=== PATIENT | female | born 1955 | race Caucasian/White ===

== ENCOUNTER 2017-07-04 14:59 | Emergency (ER) | payer MEDICARE, OTHER ==
[2017-07-04 15:25] VITALS: O2SAT 97
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
[2017-07-04] MEDS ORDERED: MORPHINE SULFATE 4 MG INJ IV ONE (15:42)
[2017-07-04] MEDS ORDERED: KEFZOL 1 GM/50 ML PREMIX** 1 GM/50 ML IVPB IV STA (15:42)
[2017-07-04] MEDS ORDERED: Sodium Chloride 0.9% 1000 ML 1,000 ML IV STA (15:43)
[2017-07-04] MEDS ORDERED: BACIGUENT PACKET TP ONE (15:43)
[2017-07-04] MEDS ORDERED: Sodium Chloride 0.9% 1000 ML 1,000 ML ONE (15:48)
[2017-07-04] MEDS ORDERED: KEFZOL 1 GM/50 ML PREMIX** 1 GM/50 ML IVPB IV ONE (15:48)
[2017-07-04] MEDS ORDERED: MORPHINE SULFATE 4 MG INJ ONE (15:48)
[2017-07-04] MEDS ORDERED: BACIGUENT PACKET ONE (15:48)
[2017-07-04] MEDS ORDERED: Adacel Vial IM ONE ×2 (15:55→16:16)
[2017-07-04] MEDS ORDERED: Zofran 4 MG/2 ML VIAL IV ONE (15:59)
[2017-07-04] MEDS ORDERED: Hydromorphone 1 mg/ml Ampule IV ONE ×2 (15:59→16:46)
[2017-07-04] MEDS ORDERED: Hydromorphone 1 mg/ml Ampule ONE ×2 (16:01→16:34)
[2017-07-04] MEDS ORDERED: Zofran 4 MG/2 ML VIAL ONE (16:01)
[2017-07-04 17:05] VITALS: BP 123/75; PULSE 102
== END 2017-07-04 17:04 | disposition home or self-care (01) ==
LOC: ED 14:59
DX: T22.212A Burn of second degree of left forearm, initial encounter (principal); T23.202A Burn of second degree of left hand, unspecified site, initial encounter; X12.XXXA Contact with other hot fluids, initial encounter
CPT/HCPCS: 36000; 90471; 90715; 96360; 96365; 96374; 96375; 96376; 99284; J0690; J1170; J2270; J2405; A9270-GY

== ENCOUNTER 2018-05-06 18:49 | Emergency (ER) | payer MEDICARE ==
[2018-05-06] MEDS ORDERED: Augmentin 875-125 Tablet PO ONE (19:23)
[2018-05-06] MEDS ORDERED: NORCO 5/325 MG PO ONE ×2 (19:23→19:24)
--- NOTE | 2018-05-06 19:29 | ERPHSYRPT ---
- History of Present Illness Time Seen by Provider: 05/06/18 19:14 Source: patient Exam Limitations: no limitations Patient Subjective Stated Complaint: pt reports dental abscess and facial swelling since yesterday. states she called her dentist and PCP and was not able to get in to either. Triage Nursing Assessment: pt is aox3, pupils perrl, pt afebrile, resps easy and non labored, skin pink warm dry. swelling noted to the the right face, face is warm to touch. dental carries noted to the right upper molars. Physician History: 62 y/o female comes to the ER with complaints of right upper tooth pain with swelling that started 2 days ago. Pt describes the pain as aching, 9/10, constant, and pt has not taken any pain meds. Pt denies any fever. Timing/Duration: gradual onset Severity: severe ENT Location: mouth, dental Prearrival Treatment: no prearrival treatment Modifying Factors: Improves With: nothing Associated Symptoms: jaw pain Allergies/Adverse Reactions: No Known Drug Allergies Allergy (Unverified 05/06/18 19:01) Home Medications: Duloxetine HCl 30 mg [Cymbalta 30 MG Capsule] 60 mg PO DAILY 08/30/16 [ History] Lisinopril 20 mg [Zestril 20 MG] 20 mg PO DAILY 08/30/16 [History] Hx Tetanus, Diphtheria Vaccination/Date Given: Yes Hx Influenza Vaccination/Date Given: Yes Hx Pneumococcal Vaccination/Date Given: No Immunizations Up to Date: Yes - Review of Systems Constitutional: No Fever, No Chills Eyes: No Symptoms Ears, Nose, & Throat: Mouth Pain Respiratory: No Cough, No Dyspnea Cardiac: No Chest Pain, No Edema, No Syncope Abdominal/Gastrointestinal: No Abdominal Pain, No Nausea, No Vomiting, No Diarrhea Genitourinary Symptoms: No Dysuria Musculoskeletal: No Back Pain, No Neck Pain Skin: No Rash Neurological: No Dizziness, No Focal Weakness, No Sensory Changes Psychological: No Symptoms Endocrine: No Symptoms All Other Systems: Reviewed and Negative - Past Medical History Pertinent Past Medical History: Yes Neurological History: No Pertinent History ENT History: No Pertinent History Cardiac History: Hypertension, Other Respiratory History: No Pertinent History Endocrine Medical History: No Pertinent History Musculoskeletal History: No Pertinent History GI Medical History: No Pertinent History History: No Pertinent History Psycho-Social History: Depression Female Reproductive Disorders: No Pertinent History - Past Surgical History Past Surgical History: Yes Neuro Surgical History: No Pertinent History Cardiac: No Pertinent History Respiratory: No Pertinent History Gastrointestinal: No Pertinent History Genitourinary: No Pertinent History Musculoskeletal: No Pertinent History Female Surgical History: No Pertinent History Other Surgical History: right kidney removed 2016 - Social History Smoking Status: Current every day smoker Exposure to second hand smoke: Yes Drug Use: none Patient Lives Alone: No - Female History Hx Now: No - Nursing Vital Signs Nursing Vital Signs: Initial Vital Signs Temperature 97.9 F 05/06/18 18:52 Pulse Rate 95 H 05/06/18 18:52 Respiratory Rate 20 05/06/18 18:52 Blood Pressure 102/76 05/06/18 18:52 O2 Sat by Pulse Oximetry 97 05/06/18 18:52 Pain Scale Pain Intensity 9 - Physical Exam General Appearance: mild distress, alert Eye Exam: bilateral eye: PERRL, EOMI Nasal Exam: normal inspection Throat Exam: dental tenderness, moist mucus membranes, No tonsillar exudate Neck Exam: normal inspection, non-tender, supple Cardiovascular/Respiratory Exam: normal breath sounds, regular rate/rhythm Abdominal Exam: non-tender, soft Neurologic Exam: alert, oriented x 3, sensation nml, No motor deficits Skin Exam: normal color, warm, dry SpO2: 97 Oxygen Delivery: Room Air - Course Nursing assessment & vital signs reviewed: Yes Ordered Tests: Medication Summary Generic Name Dose Route Start Last Admin Trade Name Freq PRN Reason Stop Dose Admin Hydrocodone Bitart/Acetaminophen 2 tab 05/06/18 19:24 [place] 5/325 Mg PO 05/06/18 19:25 STAT ONE Discontinued Medications Generic Name Dose Route Start Last Admin Trade Name Freq PRN Reason Stop Dose Admin Hydrocodone Bitart/Acetaminophen 1 tab 05/06/18 19:23 [place] 5/325 Mg PO 05/06/18 19:24 STAT ONE Amoxicillin/Clavulanate Potassium 875 mg 05/06/18 19:23 Augmentin 875-125 Tablet PO 05/06/18 19:24 STAT ONE - Progress Progress: unchanged Progress Note: 05/06/18 19:27 Pt will be started on augmentin and norco for dental abscess. Pt has F/U with dentistry on Wednesday. - Departure Time of Disposition: 19:27 Departure Disposition: Home Clinical Impression: Dental abscess Condition: Stable Critical Care Time: No Referrals: CELINA LUNA [Primary Care Provider] - Instructions: Tooth Abscess (DC) Additional Instructions: Follow up with your dentist on Wednesday. Prescriptions: Amoxicillin/Potassium Clav [Augmentin 875-125 Tablet] 875 mg PO BID #19 tablet Hydrocodone Bit/Acetaminophen [[place] 5-325 Tablet] 1 each PO QID PRN #12 tablet MDD 4 PRN Reason: Pain
[2018-05-06] MEDS ORDERED: Augmentin 875-125 Tablet ONE (19:36)
[2018-05-06] MEDS ORDERED: NORCO 5/325 MG ONE ×2 (19:36→19:37)
[2018-05-06 19:44] VITALS: BP 117/57; PULSE 92; O2SAT 95
== END 2018-05-06 19:45 | disposition home or self-care (01) ==
LOC: ED 18:49
DX: K04.7 Periapical abscess without sinus (principal); Z79.899 Other long term (current) drug therapy
CPT/HCPCS: 99283; A9270-GY

== ENCOUNTER 2018-08-05 18:11 | Emergency (ER) | payer MEDICARE ==
[2018-08-05] MEDS ORDERED: ZOFRAN ODT 4 MG ONE ×2 (18:30→19:19)
[2018-08-05 18:34] VITALS: BP 136/93; O2SAT 98
[2018-08-05] MEDS ORDERED: ZOFRAN ODT 4 MG PO ONE ×2 (18:37→19:02)
[2018-08-05] MEDS ORDERED: NORCO 5/325 MG PO ONE (19:03)
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
[2018-08-05] MEDS ORDERED: NORCO 5/325 MG ONE (19:19)
[2018-08-05 19:37] VITALS: PULSE 82
--- NOTE | 2018-08-05 22:17 | XRAY ---
Indication: Pain and swelling following injury. Comparison: None 3 views of the left hand obtained. No bony, articular, or soft tissue abnormalities.
== END 2018-08-05 19:40 | disposition home or self-care (01) ==
LOC: ED 18:11
DX: S60.222A Contusion of left hand, initial encounter (principal); W20.8XXA Other cause of strike by thrown, projected or falling object, initial encounter; Y93.89 Activity, other specified; Y92.009 Unspecified place in unspecified non-institutional (private) residence as the place of occurrence of the external cause
CPT/HCPCS: 29126; 73130; 99284; Q0162; A9270-GY

== ENCOUNTER 2020-12-13 19:16 | Emergency (ER) | payer MEDICARE ==
[2020-12-13] MEDS ORDERED: Sodium Chloride 0.9% 1000 ML 1,000 ML IV STA (19:36)
[2020-12-13] MEDS ORDERED: Sodium Chloride 0.9% 1000 ML 1,000 ML ONE (19:41)
[2020-12-13 19:49] LABS: Absolute Neutrophil Ct (ANC) 4.22 (1.4-6.9); BASOPHIL % 0.5 % (0.0-0.4); Basophil (Absolute #) 0.04 (0-0.4); Eosinophil % 7.6 % (0.00-5.0); Eosinophil (Absolute #) 0.64 (0-0.5); Hematocrit 46.2 % (35-47); Hemoglobin 14.5 gm/dl (12.0-16.0); Lymphocyte (Absolute #) 2.86 (1.0-4.6); Lymphocytes % 33.9 % (24.0-44.0); Mean Cell Volume 89.2 fl (78-100); Mean Corpuscular Hgb Concent. 31.4 g/dl (32-36); Mean Platelet Volume 10.2 fl (7.5-11.0); Monocyte (Absolute #) 0.68 (0.0-1.3); Monocytes % 8.1 % (0.0-12.0); Neutrophil % 49.9 % (36.0-66.0); Platelet Count 363 K/mm3 (150-450); Red Blood Count 5.18 M/mm3 (4.1-5.4); Red Cell Distribution Width 14.8 % (11.5-14.0); White Blood Count 8.4 K/mm3 (4.0-10.5)
[2020-12-13 19:57] LABS: PROTIME 11.3 SECONDS (9.95-12.35)
[2020-12-13 20:10] LABS: ALBUMIN 4.3 g/dL (3.5-5.0); ANION GAP 13.5 MEQ/L (5-15); BILIRUBIN,TOTAL 0.2 mg/dL (0.2-1.3); Calcium 9.3 mg/dL (8.4-10.2); Creatinine 1 1.41 mg/dL (0.52-1.04); MAGNESIUM 2.1 mg/dL (1.6-2.3); NT PRO BNP 97.2 pg/mL (0-900); Potassium 3.7 mmol/L (3.5-5.1); Total Protein 7.5 g/dL (6.3-8.2)
[2020-12-13 20:20] LABS: Erythrocyte Sedimentation Rate 5 mm/hr (0-20)
--- NOTE | 2020-12-13 22:24 | ERPHSYRPT ---
- History of Present Illness Time Seen by Provider: 12/13/20 19:35 Source: patient Exam Limitations: no limitations Patient Subjective Stated Complaint: pt states she has had some shortness of breath, intermittent chest pain, and new cough for approx 3 days. states shortne ss of breath has been increased today. describes chest pain as pressure, radiates to rt neck and jaw, and rates at 7/10. increased pain with deep brreath Triage Nursing Assessment: pt alert and oriented, answers questions approp. pt ambulatory with steady gait noted. respirations nonlabored. heart rate 100 on monitor with sinus tach noted. skin warm and dry. Physician History: Patient is a 85-year-old female who presents with a complaint of 3-day history of increasing shortness of breath. She started with a severe episode of chest pain which lasted for a while since then she has had shortness of breath and pleuritic chest pain she saw who was concerned about a pulmonary embolus and did send her to the ER for a CTA. After arrival in the discovery she had 1 kidney a lower D-dimer than in his office and lower GFR than in his o ffice he did consult with him and he did request that we proceed with a CTA because of his great concern that this could represent pulmonary embolus. Timing/Duration: day(s) (3) Activities at Onset: none Quality: sharpness Location: substernal Chest Pain Radiation: no radiation Severity of Pain-Max: severe Severity of Pain-Current: mild Modifying Factors: Improves With: breathing Nitro Today/Relief: no nitro taken today Aspirin Treatment Today: no aspirin today Associated Symptoms: denies symptoms Prior Chest Pain/Cardiac Workup: no prior chest pain Allergies/Adverse Reactions: No Known Drug Allergies Allergy (Verified 12/13/20 19:59) Home Medications: Duloxetine HCl 30 mg [Cymbalta 30 MG Capsule] 60 mg PO DAILY 08/30/16 [His tory] Aspirin EC 81 mg [Ecotrin 81 mg] 81 mg PO DAILY 12/13/20 [History] Buspirone HCl [Buspar] 15 mg PO BID 12/13/20 [History] Duloxetine HCl [Cymbalta] 60 mg PO DAILY 12/13/20 [History] Metoprolol Succinate 25 mg Xl* [Toprol-Xl 25MG Tablets] 25 mg PO BID 12/13/20 [History] Pravastatin Sodium 20 mg PO DAILY 12/13/20 [History] Pregabalin [Lyrica 100Mg] 100 mg PO TID 12/13/20 [History] Hx Tetanus, Diphtheria Vaccination/Date Given: Yes Hx Influenza Vaccination/Date Given: Yes Hx Pneumococcal Vaccination/Date Given: No Immunizations Up to Date: Yes Travel Risk - International Travel Have you traveled outside of the country in past 3 weeks: No - Coronavirus Screening Are you exhibiting any of the following symptoms?: Yes Symptoms: Cough: New Onset, Shortness of Breath Close contact with a COVID-19 positive Pt in past 14-21 Days: No - Vaccine Status Have you recieved a Covid-19 vaccination: No - Review of Systems Constitutional: No Fever, No Chills Eyes: No Symptoms Ears, Nose, & Throat: No Symptoms Respiratory: Dyspnea, Dyspnea on Exertion ([place]) Cardiac: Chest Pain Abdominal/Gastrointestinal: No Abdominal Pain, No Nausea, No Vomiting, No Diarrhea Genitourinary Symptoms: No Dysuria Musculoskeletal: No Back Pain, No Neck Pain Skin: No Rash Neurological: No Dizziness, No Focal Weakness, No Sensory Changes Psychological: No Symptoms Endocrine: No Symptoms All Other Systems: Reviewed and Negative - Past Medical History Pertinent Past Medical History: Yes Neurological History: No Pertinent History ENT History: No Pertinent History Cardiac History: Hypertension, Other Respiratory History: No Pertinent History Endocrine Medical History: No Pertinent History Musculoskeletal History: No Pertinent History GI Medical History: No Pertinent History History: No Pertinent History Psycho-Social History: Anxiety, Depression Female Reproductive Disorders: No Pertinent History Other Medical History: tachycardia - Past Surgical History Past Surgical History: Yes Neuro Surgical History: No Pertinent History Cardiac: No Pertinent History Respiratory: No Pertinent History Gastrointestinal: No Pertinent History Genitourinary: Kidney Surgery Musculoskeletal: No Pertinent History Female Surgical History: No Pertinent History Other Surgical History: right kidney removed 2015 - Social History Smoking Status: Former smoker Exposure to second hand smoke: Yes Drug Use: none Patient Lives Alone: No - Nursing Vital Signs Nursing Vital Signs: Initial Vital Signs Temperature 97.1 F 12/13/20 19:17 Pulse Rate 100 H 12/13/20 19:17 Respiratory Rate 20 12/13/20 19:17 Blood Pressure 133/84 12/13/20 19:17 O2 Sat by Pulse Oximetry 97 12/13/20 19:17 Pain Scale Pain Intensity 5 - Physical Exam General Appearance: no apparent distress, alert Eye Exam: PERRL/EOMI, eyes nml inspection Ears, Nose, Throat Exam: normal ENT inspection, moist mucous membranes Neck Exam: normal inspection, non-tender, supple Respiratory Exam: normal breath sounds, lungs clear, No respiratory distress Cardiovascular Exam: regular rate/rhythm, normal heart sounds, No edema Gastrointestinal/Abdomen Exam: soft, No tenderness, No mass Back Exam: normal inspection, No CVA tenderness, No vertebral tenderness Extremity Exam: normal inspection, normal range of motion Neurologic Exam: alert, oriented x 3, cooperative, normal mood/affect, nml cerebellar function, sensation nml, No motor deficits Skin Exam: normal color, warm, dry Lymphatic Exam: No adenopathy SpO2: 98 - Course Nursing assessment & vital signs reviewed: Yes EKG Interpreted by Me: RATE (105), Sinus Rhythm, Sinus Tach, NORMAL AXIS, NORMAL INTERVALS, NORMAL QRS, NORMAL ST-T - CT Exams Chest CT Interpretation: Negative (Negative for pulmonary emboli) - Radiology Ultrasound Exam Venous Lower Extremity Ultrasound: negative Ordered Tests: Active Orders 24 hr Category Date Time Status IV Insertion STAT Care 12/13/20 19:38 Active CHEST WITH CONTRAST [CT] Stat Exams 12/13/20 19:34 Taken VENOUS BILATERAL EXTREMITY [US] Stat Exams 12/13/20 22:11 Taken AMYLASE Stat Lab 12/13/20 19:45 Completed CBC W DIFF Stat Lab 12/13/20 19:45 Completed CMP Stat Lab 12/13/20 19:45 Completed D-DIMER QUANTITATIVE Stat Lab 12/13/20 19:45 Completed Erythrocyte Sedimentation Rate Stat Lab 12/13/20 19:45 Completed LIPASE Stat Lab 12/13/20 19:45 Completed Lactic Acid Stat Lab 12/13/20 19:55 Completed MAGNESIUM Stat Lab 12/13/20 19:45 Completed NT PRO BNP Stat Lab 12/13/20 19:45 Completed PROTIME WITH INR Stat Lab 12/13/20 19:45 Completed TROPONIN Q3H Lab 12/13/20 19:45 Completed TROPONIN Q3H Lab 12/13/20 22:45 Ordered TROPONIN Q3H Lab 12/14/20 01:45 Ordered TROPONIN Q3H Lab 12/14/20 04:45 Ordered TROPONIN Q3H Lab 12/14/20 07:45 Ordered UA W/RFX UR CULTURE Stat Lab 12/13/20 19:34 Ordered Medication Summary Discontinued Medications Generic Name Dose Route Start Last Admin Trade Name Konrad PRN Reason Stop Dose Admin Sodium Chloride 1,000 mls @ 999 mls/hr 12/13/20 19:36 12/13/20 20:44 Sodium Chloride 0.9% 1000 Ml IV 12/13/20 20:36 Infused .Q1H1M STA Infusion Sodium Chloride Confirm 12/13/20 19:41 Sodium Chloride 0.9% 1000 Ml Administered 12/13/20 19:42 Dose 1,000 mls @ ud .ROUTE .STK-MED ONE Lab/Rad Data: Laboratory Result Diagrams 12/13/20 19:45 12/13/20 19:45 Laboratory Results 12/13/20 12/13/20 12/13/20 Range/Units 19:55 19:45 19:45 WBC (4.0-10.5) K/mm3 RBC (4.1-5.4) M/mm3 Hgb (12.0-16.0) gm/dl Hct (35-47) % MCV (78-100) fl MCH (26-32) pg MCHC (32-36) g/dl RDW (11.5-14.0) % Plt Count (150-450) K/mm3 MPV (7.5-11.0) fl Gran % (36.0-66.0) % Eos # (Auto) (0-0.5) Absolute Lymphs (auto) (1.0-4.6) Absolute Monos (auto) (0.0-1.3) Lymphocytes % (24.0-44.0) % Monocytes % (0.0-12.0) % Eosinophils % (0.00-5.0) % Basophils % (0.0-0.4) % Absolute Granulocytes (1.4-6.9) Basophils # (0-0.4) ESR (0-20) mm/hr PT 11.3 (9.95-12.35) SECONDS INR 1.00 (0.8-3.0) D-Dimer 652 H* (215-500) ng/mL Sodium (137-145) mmol/L Potassium (3.5-5.1) mmol/L Chloride (98-107) mmol/L Carbon Dioxide (22-30) mmol/L Anion Gap (5-15) MEQ/L BUN (7-17) mg/dL Creatinine (0.52-1.04) mg/dL Estimated GFR ML/MIN Glucose (74-106) mg/dL Lactic Acid 1.4 (0.4-2.0) Calcium (8.4-10.2) mg/dL Magnesium (1.6-2.3) mg/dL Total Bilirubin (0.2-1.3) mg/dL AST (14-36) U/L ALT (0-35) U/L Alkaline Phosphatase (38-126) U/L Troponin I < 0.012 (0.000-0.034) ng/mL NT-Pro-B Natriuret Pep (0-900) pg/mL Serum Total Protein (6.3-8.2) g/dL Albumin (3.5-5.0) g/dL Amylase (30-110) U/L Lipase (23-300) U/L 12/13/20 12/13/20 Range/Units 19:45 19:45 WBC 8.4 (4.0-10.5) K/mm3 RBC 5.18 (4.1-5.4) M/mm3 Hgb 14.5 (12.0-16.0) gm/dl Hct 46.2 (35-47) % MCV 89.2 (78-100) fl MCH 28.0 (26-32) pg MCHC 31.4 L (32-36) g/dl RDW 14.8 H (11.5-14.0) % Plt Count 363 (150-450) K/mm3 MPV 10.2 (7.5-11.0) fl Gran % 49.9 (36.0-66.0) % Eos # (Auto) 0.64 H (0-0.5) Absolute Lymphs (auto) 2.86 (1.0-4.6) Absolute Monos (auto) 0.68 (0.0-1.3) Lymphocytes % 33.9 (24.0-44.0) % Monocytes % 8.1 (0.0-12.0) % Eosinophils % 7.6 H (0.00-5.0) % Basophils % 0.5 (0.0-0.4) % Absolute Granulocytes 4.22 (1.4-6.9) Basophils # 0.04 (0-0.4) ESR 5 (0-20) mm/hr PT (9.95-12.35) SECONDS INR (0.8-3.0) D-Dimer (215-500) ng/mL Sodium 141 (137-145) mmol/L Potassium 3.7 (3.5-5.1) mmol/L Chloride 104 (98-107) mmol/L Carbon Dioxide 27 (22-30) mmol/L Anion Gap 13.5 (5-15) MEQ/L BUN 19 H (7-17) mg/dL Creatinine 1.41 H (0.52-1.04) mg/dL Estimated GFR 40.0 ML/MIN Glucose 117 H (74-106) mg/dL Lactic Acid (0.4-2.0) Calcium 9.3 (8.4-10.2) mg/dL Magnesium 2.1 (1.6-2.3) mg/dL Total Bilirubin 0.20 (0.2-1.3) mg/dL AST 22 (14-36) U/L ALT 22 (0-35) U/L Alkaline Phosphatase 117 (38-126) U/L Troponin I (0.000-0.034) ng/mL NT-Pro-B Natriuret Pep 97.2 (0-900) pg/mL Serum Total Protein 7.5 (6.3-8.2) g/dL Albumin 4.3 (3.5-5.0) g/dL Amylase 71 (30-110) U/L Lipase 122 (23-300) U/L - Progress Progress: improved Air Movement: good Blood Culture(s) Obtained: No Antibiotics given: No - Departure Departure Disposition: Home Clinical Impression: Dyspnea Condition: Stable Critical Care Time: No Referrals: CELINA LUNA [Primary Care Provider] - Instructions: Shortness of Breath (Dyspnea) (DC) Prescriptions: Oxycodone HCl/Acetaminophen [Percocet 5-325 mg Tablet] 1 each PO Q6H PRN PRN 3 Days #12 tablet MDD 4 PRN Reason: Pain
[2020-12-13] MEDS ORDERED: NORCO 5/325 MG PO ONE (22:39)
[2020-12-13] MEDS ORDERED: NORCO 5/325 MG ONE (22:41)
[2020-12-13 22:47] VITALS: BP 122/62; PULSE 92; O2SAT 96
--- NOTE | 2020-12-14 07:38 | XRAY ---
Indication: Chest pain, back pain, short of breath, and cough. Elevated d-dimer. Multiple contiguous axial images obtained through the chest using 80 cc Isovue 370 contrast and PE protocol. Comparison: None There is good opacification of the pulmonary arteries to include the lobar and segmental branches. No pulmonary embolus. Heart is borderline enlarged. Aorta is normal in course and caliber. No pathologic mediastinal/hilar lymphadenopathy. Small hiatal hernia. Lungs demonstrates mild bilateral dependent atelectasis. Two 5 mm peripheral right upper lobe and 6 mm left lower lobe noncalcified nodules possibly granulomatous in this demographic. Lingula subsegmental atelectasis/scarring. No infiltrate or effusion. Bony thorax intact with mild degenerative changes throughout the spine. Limited upper abdomen demonstrates fatty liver and a few splenic ossified granulomas. Impression: 1. Negative pulmonary embolus. 2. Incidental subsegmental atelectasis/scarring, fatty liver, and a few pulmonary noncalcified micronodules possibly granulomatous. Comment: Preliminary interpretation was made by [facility]. No critical discrepancy.
--- NOTE | 2020-12-14 07:40 | XRAY ---
Indication: Bilateral leg swelling. Two-dimensional sonogram and color Doppler imaging of the major venous vessels of the left and right leg was performed. Comparison: None No thrombus seen in the examined deep venous vessels of the left and right leg including greater saphenous vein. Veins demonstrate normal compressibility. Venous waveforms are normal with and without augmentation. Impression: Left and right legs negative for DVT. Comment: Preliminary report was given.
== END 2020-12-13 22:53 | disposition home or self-care (01) ==
LOC: ED 19:16
DX: R06.00 Dyspnea, unspecified (principal)
CPT/HCPCS: 36000; 36415; 71260; 80048; 80053; 82150; 83605; 83690; 83735; 83880; 84443; 84484; 85025; 85027; 85379; 85610; 85652; 93970; 96360; 99284; A9270-GY

== ENCOUNTER 2023-03-01 17:20 | Emergency (ER) | payer MEDICARE ==
--- NOTE | 2023-03-01 17:27 | ERPHSYRPT ---
- History of Present Illness Time Seen by Provider: 03/01/23 17:27 Source: patient, family Exam Limitations: no limitations Physician History: This is a 67-year-old white female patient who has no history of CVA/stroke. However, yesterday she was seeing stars spots and colors. In addition, she states that she felt as though she was looking bilaterally out above thin veil. It resolved but then the same symptoms returned today approximately 1 to 2 PM earlier this afternoon. In addition there was a question of slightly slurred speech, expressive aphasia and left mouth droop. Patient is a former smoker. Patient denies chest pain and she denies shortness of breath. She has no abdominal pain. She does have a slight headache. Patient has a history of hypertension, anxiety and tachycardia. Patient also states that she has right- sided altered sensation. She also complains of some dizziness earlier today. Patient states she chronically has low blood pressure. However, she is also taking antihypertensive medication. Timing/Duration: yesterday Severity: moderate Character of Deficits: altered sensation (Right side), other (Expressive aphasia) Baseline/Normal Cognition: alert oriented x 3 Current Cognition: alert oriented x 3 Baseline Gait: walks w/o assistance Associated Symptoms: confusion, slurred speech (?), headache Allergies/Adverse Reactions: No Known Drug Allergies Allergy (Verified 12/13/20 19:59) Home Medications: Duloxetine HCl 30 mg [Cymbalta 30 MG Capsule] 60 mg PO DAILY 08/30/16 [History] Aspirin EC 81 mg [Ecotrin 81 mg] 81 mg PO DAILY 12/13/20 [History] Duloxetine HCl [Cymbalta] 60 mg PO DAILY 12/13/20 [History] Pravastatin Sodium 20 mg PO DAILY 12/13/20 [History] Pregabalin [Lyrica 100Mg] 100 mg PO TID 12/13/20 [History] Estradiol [Estrace] 0.5 mg PO DAILY 03/01/23 [History] Lisinopril 10 mg [Zestril 10 MG] 10 mg PO DAILY 03/01/23 [History] Trazodone HCl 100 mg PO DAILY 03/01/23 [History] hydrOXYzine HCL [Hydroxyzine HCl] 10 mg PO DAILY 03/01/23 [History] Hx Tetanus, Diphtheria Vaccination/Date Given: Yes Hx Influenza Vaccination/Date Given: Yes Hx Pneumococcal Vaccination/Date Given: No Travel Risk - International Travel Have you traveled outside of the country in past 3 weeks: No - Coronavirus Screening Are you exhibiting any of the following symptoms?: No Close contact with a COVID-19 positive Pt in past 14-21 Days: No - Vaccine Status Have you recieved a Covid-19 vaccination: No - Review of Systems Constitutional: No Symptoms Eyes: No Symptoms Ears, Nose, & Throat: No Symptoms Respiratory: No Symptoms Cardiac: No Symptoms Abdominal/Gastrointestinal: No Symptoms Genitourinary Symptoms: No Symptoms Musculoskeletal: No Symptoms Neurological: Dizziness, Headache, Sensory Changes (Right side), Speech Changes Psychological: No Symptoms Endocrine: No Symptoms Hematologic/Lymphatic: No Symptoms Immunological/Allergic: No Symptoms All Other Systems: Reviewed and Negative - Past Medical History Pertinent Past Medical History: Yes Neurological History: No Pertinent History ENT History: No Pertinent History Cardiac History: Hypertension, Other Respiratory History: No Pertinent History Endocrine Medical History: No Pertinent History Musculoskeletal History: No Pertinent History GI Medical History: No Pertinent History History: No Pertinent History Psycho-Social History: Anxiety, Depression Female Reproductive Disorders: No Pertinent History Other Medical History: tachycardia - Past Surgical History Past Surgical History: Yes Neuro Surgical History: No Pertinent History Cardiac: No Pertinent History Respiratory: No Pertinent History Gastrointestinal: No Pertinent History Genitourinary: Kidney Surgery Musculoskeletal: No Pertinent History Female Surgical History: No Pertinent History Other Surgical History: right kidney removed 2015 - Social History Smoking Status: Former smoker Exposure to second hand smoke: Yes Drug Use: none Patient Lives Alone: No - Nursing Vital Signs Nursing Vital Signs: Initial Vital Signs Temperature 96.9 F 03/01/23 17:42 Pulse Rate 92 H 03/01/23 17:42 Respiratory Rate 22 03/01/23 17:42 Blood Pressure 90/57 03/01/23 17:42 O2 Sat by Pulse Oximetry 97 03/01/23 17:42 Pain Scale Pain Intensity 5 - [place] Coma Scale Best Eye Response ([place]): (4) open spontaneously Best Verbal Response ([place]): (5) oriented Best Motor Response ([place]): (6) obeys commands [place] Total: 15 - Physical Exam General Appearance: no apparent distress, alert, anxiety Eye Exam: bilateral eye: normal inspection, PERRL, EOMI Ears, Nose, Throat Exam: normal ENT inspection, moist mucous membranes Neck Exam: normal inspection, non-tender, supple, full range of motion Respiratory: normal breath sounds, airway intact, rhonchi (Left mild expiratory), wheezing (Left mild expiratory), No chest tenderness, No respiratory distress Cardiovascular: regular rate/rhythm, normal heart sounds, normal peripheral pulses Gastrointestinal: soft, normal bowel sounds, No tenderness Pelvic Exam: not done Rectal Exam: not done Back Exam: normal inspection, normal range of motion, No CVA tenderness, No vertebral tenderness Extremity Exam: normal inspection, normal range of motion, durán, No pelvis stable Mental Status: alert, oriented x 3, cooperative judicial clerk Exam: normal hearing, normal speech, PERRL, tongue midline Coordination/Gait: normal finger to nose Motor/Sensory: no motor deficit, no sensory deficit, no pronator drift Skin Exam: normal color, warm, dry SpO2 Interpretation: normal O2 Delivery: Room Air - Course Nursing assessment & vital signs reviewed: Yes EKG Interpreted by Me: RATE (76), Sinus Rhythm, NORMAL AXIS, NORMAL INTERVALS, NORMAL QRS, NORMAL ST-T, Other (No acute ischemic changes on today's twelve-lead EKG.) Ordered Tests: Active Orders 24 hr Category Date Time Status Surveyor Oil Well Directional STAT Care 03/01/23 18:35 Active EKG-ER Only STAT Care 03/01/23 18:33 Active IV Insertion STAT Care 03/01/23 18:33 Active NPO (ED) STAT Care 03/01/23 18:34 Active POCT Glucose Check STAT Care 03/01/23 18:33 Active Pulse Oximetry (ED) STAT Care 03/01/23 18:33 Active CHEST 1 VIEW (PORTABLE) Stat Exams 03/01/23 18:35 Taken HEAD WITHOUT CONTRAST [CT] Stat Exams 03/01/23 17:54 Completed BLOOD CULTURE Stat Lab 03/01/23 19:10 Received CBC W DIFF Stat Lab 03/01/23 19:10 Completed CMP Stat Lab 03/01/23 19:10 Completed POCT GLUCOSE Stat Lab 03/01/23 21:24 Completed UA W/RFX UR CULTURE Stat Lab 03/01/23 21:25 Received Medication Summary Generic Name Dose Route Start Last Admin Trade Name Freq PRN Reason Stop Dose Admin Ceftriaxone Sodium/Dextrose 1 g in 50 mls @ 100 mls/hr 03/01/23 22:04 03/01/23 22:11 Rocephin 1 Gm-D5w 50 Ml Bag IV 03/01/23 22:33 100 mls/hr STAT STA 100 mls/hr Administration Discontinued Medications Generic Name Dose Route Start Last Admin Trade Name Konrad PRN Reason Stop Dose Admin Aspirin 324 mg 03/01/23 21:50 03/01/23 22:08 Aspirin 81 Mg Tab.Chew PO 03/01/23 21:51 Not Given STAT ONE Aspirin 243 mg 03/01/23 22:09 03/01/23 22:10 Aspirin 81 Mg Tab.Chew PO 03/01/23 22:10 243 mg STAT ONE Administration Sodium Chloride 500 mls @ 500 mls/hr 03/01/23 19:26 03/01/23 20:38 Sodium Chloride 0.9% 500 Ml IV 03/01/23 20:25 Infused .Q1H ONE Infusion Sodium Chloride Confirm 03/01/23 19:37 Sodium Chloride 0.9% 500 Ml Administered 03/01/23 19:38 Dose 500 mls @ ud IV .STK-MED ONE Ceftriaxone Sodium/Dextrose Confirm 03/01/23 22:11 Rocephin 1 Gm-D5w 50 Ml Bag Administered 03/01/23 22:12 Dose 1 g in 50 mls @ ud IV .STK-MED ONE Lab/Rad Data: Laboratory Result Diagrams 03/01/23 19:10 03/01/23 19:10 Laboratory Results 03/01/23 03/01/23 03/01/23 Range/Units 21:24 19:10 19:10 WBC 8.1 (4.0-10.5) x10^3/uL RBC 3.89 L (4.1-5.4) x10^6/uL Hgb 11.2 L (12.0-16.0) g/dL Hct 34.6 L (35-47) % MCV 88.9 (78-100) fL MCH 28.8 (26-32) pg MCHC 32.4 (32-36) g/dL RDW 14.9 H (11.5-14.0) % Plt Count 260 (150-450) x10^3/uL MPV 10.6 (7.5-11.0) fL Gran % 50.7 (36.0-66.0) % Immature Gran % (Auto) 0.4 (0.00-0.4) % Nucleat RBC Rel Count 0.0 (0.00-0.1) % Eos # (Auto) 0.63 H (0-0.5) x10^3/uL Immature Gran # (Auto) 0.03 (0.00-0.03) x10^3u/L Absolute Lymphs (auto) 2.43 (1.0-4.6) x10^3/uL Absolute Monos (auto) 0.85 (0.0-1.3) x10^3/uL Absolute Nucleated RBC 0.00 (0.00-0.01) x10^3u/L Lymphocytes % 29.9 (24.0-44.0) % Monocytes % 10.4 (0.0-12.0) % Eosinophils % 7.7 H (0.00-5.0) % Basophils % 0.9 (0.0-0.4) % Absolute Granulocytes 4.13 (1.4-6.9) x10^3/uL Basophils # 0.07 (0-0.4) x10^3/uL Sodium 139 (137-145) mmol/L Potassium 4.3 (3.5-5.1) mmol/L Chloride 109 H (98-107) mmol/L Carbon Dioxide 20 L (22-30) mmol/L Anion Gap 14.5 (5-15) MEQ/L BUN 20 H (7-17) mg/dL Creatinine 2.34 H (0.52-1.04) mg/dL Estimated GFR 22.2 ML/MIN Glucose 76 (74-106) mg/dL POC Glucometer 94 (74 to 106) mg/dL Calcium 8.5 (8.4-10.2) mg/dL Total Bilirubin 0.70 (0.2-1.3) mg/dL AST 29 (14-36) U/L ALT 20 (0-35) U/L Alkaline Phosphatase 73 (38-126) U/L Serum Total Protein 6.8 (6.3-8.2) g/dL Albumin 3.7 (3.5-5.0) g/dL - Progress Progress: improved, re-examined Progress Note: 03/01/23 19:24 Chest x-ray was interpreted by me. ? Fluid versus atelectasis versus early infiltrate left lower lung base. CT scan of the head without contrast is a normal study. No comparisons are available. This patient's medical issue is 1 of moderate to high complexity. The patient work-up and level of complexity is based on review of the patient's past medical history, review of the patient's medication list, review of the patient's drug allergy list, history present illness and physical findings on examination. Work-up in this patient includes CT scan of the head without contrast, CBC, CMP, twelve-lead EKG, urinalysis, and chest x-ray. The above-stated results of the chest x-ray and CT scan of the head without contrast are noted. We are awaiting urinalysis and the results of the CBC and CMP. Because of the patient's symptoms and clinical findings, we will be ordering a teleneurology consultation and follow their recommendations. Patient will also receive 1/2 L of normal saline solution intravenously. 03/01/23 21:51 I spoke with teleneurologist Dr. Austin and I reviewed the patient history, physical findings, work-up results and repeat examination results. He then evaluated the patient and states that he does not think that she had an acute stroke but does feel the patient should be admitted and have a MRI of the brain performed tomorrow as well as CTA of the neck. He stated also an echocardiogram should be performed and a full aspirin should be provided the patient daily. W edwige will contact the telehospitalist. 03/01/23 22:16 Patient is refusing admission into the hospital. She is refusing transfer to any facility. She states that she is doing fine and wants to go home. She is aware she will need to sign AGAINST MEDICAL ADVICE form. I discussed the benefits of the being admitted in the hospital for this condition. I also discussed the risk of going home and not being monitored and not completing the work-up while being monitored. She understands. Her also understands and the patient wants to be discharged to home. Counseled pt/family regarding: lab results, diagnosis, rad results Medical Desision Making - Diagnostic Testing Diagnostic test were ordered, analyzed, and reviewed by me: Yes Radiological Interpretation: Interpreted by me, Reviewed by me, Teleradiologist Report - Risk of complications The pt has a high risk of morbidity or mortality based on: Decision regarding hospitilization or escalation of hosp level of care - Departure Departure Disposition: AMA Clinical Impression: Expressive aphasia, Headache, Visual changes, Hypotension, Left lower lobe pulmonary infiltrate Condition: Stable Critical Care Time: No Referrals: CELINA LUNA NP [Primary Care Provider] - Follow up/PCP as directed Additional Instructions: Take your antibiotics as prescribed. Follow-up with your primary care provider for further evaluation and management. Return to the emergency department if symptoms recur Prescriptions: Azithromycin 250 mg [Zithromax 250 MG TABLET] 250 mg PO ZPACK #6 tablet
[2023-03-01 19:20] LABS: Absolute Neutrophil Ct (ANC) 4.13 x10^3/uL (1.4-6.9); BASOPHIL % 0.9 % (0.0-0.4); Basophil (Absolute #) 0.07 x10^3/uL (0-0.4); Eosinophil % 7.7 % (0.00-5.0); Eosinophil (Absolute #) 0.63 x10^3/uL (0-0.5); Hematocrit 34.6 % (35-47); Hemoglobin 11.2 g/dL (12.0-16.0); IMMATURE GRAN # 0.03 x10^3u/L (0.00-0.03); IMMATURE GRAN % 0.4 % (0.00-0.4); Lymphocyte (Absolute #) 2.43 x10^3/uL (1.0-4.6); Lymphocytes % 29.9 % (24.0-44.0); Mean Cell Volume 88.9 fL (78-100); Mean Corpuscular Hemoglobin 28.8 pg (26-32); Mean Corpuscular Hgb Concent. 32.4 g/dL (32-36); Mean Platelet Volume 10.6 fL (7.5-11.0); Monocyte (Absolute #) 0.85 x10^3/uL (0.0-1.3); Monocytes % 10.4 % (0.0-12.0); Neutrophil % 50.7 % (36.0-66.0); Platelet Count 260 x10^3/uL (150-450); Red Blood Count 3.89 x10^6/uL (4.1-5.4); Red Cell Distribution Width 14.9 % (11.5-14.0); White Blood Count 8.1 x10^3/uL (4.0-10.5)
[2023-03-01] MEDS ORDERED: Sodium Chloride 0.9% 500 ML 500 ML IV ONE ×2 (19:26→19:37)
[2023-03-01 19:39] LABS: ALBUMIN 3.7 g/dL (3.5-5.0); ANION GAP 14.5 MEQ/L (5-15); BILIRUBIN,TOTAL 0.7 mg/dL (0.2-1.3); Calcium 8.5 mg/dL (8.4-10.2); Creatinine 1 2.34 mg/dL (0.52-1.04); EST GLOMERULAR FILTRATION RATE 22.2 ML/MIN; Potassium 4.3 mmol/L (3.5-5.1); Total Protein 6.8 g/dL (6.3-8.2)
[2023-03-01 20:13] VITALS: O2SAT 97
[2023-03-01] MEDS: BABY ASPIRIN 81 MG CHEW PO ONE ×2 (22:00→22:08)
[2023-03-01] MEDS ORDERED: ROCEPHIN 1 Gm-D5w 50 ml Bag** 1 G/50 ML IVPB IV STA (22:04)
[2023-03-01] MEDS ORDERED: BABY ASPIRIN 81 MG CHEW PO ONE (22:09)
--- NOTE | 2023-03-01 22:10 | XRAY ---
Indication: Slurred speech. Stroke. Multiple contiguous axial images obtained through the head without contrast. Comparison: None Normal appearing brain parenchyma, ventricles, and bony calvarium for patient's age. Visualized paranasal sinuses and mastoid air cells are clear. Impression: Normal CT head without contrast exam.
[2023-03-01] MEDS ORDERED: ROCEPHIN 1 Gm-D5w 50 ml Bag** 1 G/50 ML IVPB IV ONE (22:11)
[2023-03-01 22:20] VITALS: BP 111/89; PULSE 90
[2023-03-01 22:20] LABS: Appearance Clear (Clear); Bacteria Few /HPF (None Seen); Bilirubin Negative (Negative); Blood Negative (Negative); Epithelial Cells Moderate /HPF (None Seen); Glucose, Urine Negative (Negative); Ketones Negative (Negative); Leukocyte Esterase Trace (Negative); Nitrite Negative (Negative); Protein,Urine Dip Negative (Negative); RBC 0-2 /HPF (0-5); Specific Gravity 1.015 (1.005-1.030)
[2023-03-01 22:21] LABS: ADD URINE CULTURE? YES (NO)
--- NOTE | 2023-03-01 22:24 | XRAY ---
Indication: Cough. Comparison: None Portable chest inflated and clear. Heart not enlarged for AP portable technique. Bony thorax intact with osteopenia. Impression: Nonacute chest.
== END 2023-03-01 22:50 | disposition left against medical advice (07) ==
LOC: ED 17:20
DX: R47.01 Aphasia (principal); R51.9 Headache, unspecified; H53.8 Other visual disturbances; I95.9 Hypotension, unspecified; R91.8 Other nonspecific abnormal finding of lung field; R20.2 Paresthesia of skin; R42 Dizziness and giddiness; I10 Essential (primary) hypertension; Z79.899 Other long term (current) drug therapy; Z28.310 Unvaccinated for COVID-19
CPT/HCPCS: 36000; 36415; 70450; 71045; 80053; 81001; 82947; 85025; 87040; 87086; 93005; 93041; 94760; 96360; 99285; J0696; A9270-GY

== ENCOUNTER 2025-01-04 14:33 | Observation (INO) | payer MEDICARE ==
[2025-01-04 15:49] LABS: Absolute Neutrophil Ct (ANC) 3.85 x10^3/uL (1.56-6.13); BASOPHIL % 1.2 % (0.1-1.2); Basophil (Absolute #) 0.08 x10^3/uL (0.01-0.08); Eosinophil % 6.8 % (0.7-5.8); Eosinophil (Absolute #) 0.47 x10^3/uL (0.04-0.36); Hematocrit 40.6 % (34.1-44.9); Hemoglobin 13.8 g/dL (11.2-15.7); IMMATURE GRAN # 0.04 x10^3u/L (0.001-0.031); IMMATURE GRAN % 0.6 % (0.001-0.429); Lymphocytes % 27.4 % (19.3-51.7); Mean Cell Volume 88.3 fL (79.4-94.8); Mean Platelet Volume 9.9 fL (9.4-12.3); Monocyte (Absolute #) 0.59 x10^3/uL (0.24-0.86); Monocytes % 8.5 % (4.7-12.5); Neutrophil % 55.5 % (34.0-71.1); Platelet Count 245 x10^3/uL (182-369); Red Cell Distribution Width 13.3 % (11.7-14.4); White Blood Count 6.9 x10^3/uL (3.98-10.04)
[2025-01-04] MEDS ORDERED: Sodium Chloride 0.9% 1000 ML 1,000 ML ONE (15:50)
[2025-01-04] MEDS ORDERED: ANTIVERT 25 MG ONE (15:50)
[2025-01-04] MEDS ORDERED: Zofran 4 MG/2 ML VIAL ONE (15:50)
[2025-01-04] MEDS: ANTIVERT 25 MG PO ONE (15:52)
[2025-01-04] MEDS: Zofran 4 MG/2 ML VIAL IV ONE (15:53)
[2025-01-04] MEDS: Sodium Chloride 0.9% 1000 ML 1,000 ML IV STA (15:54)
[2025-01-04 16:03] LABS: ALBUMIN 4.5 g/dL (3.5-5.0); ANION GAP 17.1 MEQ/L (5-15); BILIRUBIN,TOTAL 0.6 mg/dL (0.2-1.3); Calcium 9.7 mg/dL (8.4-10.2); Creatinine 1 1.09 mg/dL (0.52-1.04); EST GLOMERULAR FILTRATION RATE 55.7 ML/MIN; MAGNESIUM 1.7 mg/dL (1.6-2.3); Potassium 4.2 mmol/L (3.5-5.1); Total Protein 7.1 g/dL (6.3-8.2)
--- NOTE | 2025-01-04 16:06 | ERPHSYRPT ---
- History of Present Illness Time Seen by Provider: 01/04/25 14:42 Source: patient, family Exam Limitations: no limitations Patient Subjective Stated Complaint: C/O head injury approx 10 days ago. Patient states she fell and hit the left side of her head on a cedar chest. Denies loss of conciousness. States still has a headache and double vision at times. Triage Nursing Assessment: Patient brought back to ER in a W/C. Transferred self to bed. She is alert and oriented. NO SOB. RDO WNL. Physician History: 69-year-old female with a history of hypertension, hyperlipidemia presented in the ER with complaints of left-sided headache with dizziness off and on for almost 2 weeks. Patient reports she was getting out of her bed, tripped on her heel and fell on the left side hitting her head against the edge of cedar chest with a hematoma/swelling on left temporoparietal area without loss of consciousness. He has been taking symptomatic treatment at home, swelling has improved but still feel headache off and on along with dizziness where patient describes spinning sensation with movements of her head and even with closing her eye and twisting movements. Reports occasional diplopia as well. No numbness tingling or focal weakness. Patient reports she feels wobbly and cannot walk in a straight line with tendency to fall on 1 side or the other which is lately getting worse. No chest pain palpitations or shortness of breath reported. Allergies/Adverse Reactions: No Known Drug Allergies Allergy (Verified 01/04/25 14:53) Home Medications: Duloxetine HCl 30 mg [Cymbalta 30 MG Capsule] 60 mg PO DAILY 08/30/16 [History] Aspirin EC 81 mg [Ecotrin 81 mg] 81 mg PO DAILY 12/13/20 [History] Duloxetine HCl [Cymbalta] 60 mg PO DAILY 12/13/20 [History] Pravastatin Sodium 20 mg PO DAILY 12/13/20 [History] Pregabalin [Lyrica 100Mg] 100 mg PO TID 12/13/20 [History] Estradiol [Estrace] 0.5 mg PO DAILY 03/01/23 [History] Lisinopril 10 mg [Zestril 10 MG] 10 mg PO DAILY 03/01/23 [History] Trazodone HCl 100 mg PO DAILY 03/01/23 [History] hydrOXYzine HCL [Hydroxyzine HCl] 10 mg PO DAILY 03/01/23 [History] Hx Tetanus, Diphtheria Vaccination/Date Given: Yes Hx Influenza Vaccination/Date Given: Yes Hx Pneumococcal Vaccination/Date Given: No Immunizations Up to Date: Yes Travel Risk - International Travel Have you traveled outside of the country in past 3 weeks: No - Emerging Infectious Disease Are you exhibiting symptoms associated with any current EIDs: No - Review of Systems Constitutional: Fatigue Eyes: No Symptoms Ears, Nose, & Throat: No Symptoms Respiratory: No Symptoms Cardiac: No Symptoms Abdominal/Gastrointestinal: Nausea Genitourinary Symptoms: No Symptoms Musculoskeletal: Injury Skin: No Symptoms Neurological: Dizziness, Headache Psychological: No Symptoms Endocrine: No Symptoms Hematologic/Lymphatic: No Symptoms Immunological/Allergic: No Symptoms - Past Medical History Pertinent Past Medical History: Yes Neurological History: No Pertinent History ENT History: No Pertinent History Cardiac History: Hypertension, Other Respiratory History: No Pertinent History Endocrine Medical History: No Pertinent History Musculoskeletal History: No Pertinent History GI Medical History: GERD History: No Pertinent History Psycho-Social History: Anxiety Female Reproductive Disorders: No Pertinent History Other Medical History: tachycardia - Past Surgical History Past Surgical History: Yes Neuro Surgical History: No Pertinent History Cardiac: No Pertinent History Respiratory: No Pertinent History Gastrointestinal: No Pertinent History Genitourinary: Kidney Surgery Musculoskeletal: No Pertinent History Female Surgical History: No Pertinent History Other Surgical History: right kidney removed 2016 - Social History Smoking Status: Former smoker Exposure to second hand smoke: Yes Drug Use: none - Social Determinants of Health Will the patient participate in the screening: Declined to provide - Nursing Vital Signs Nursing Vital Signs: Initial Vital Signs Temperature 96.3 F 01/04/25 14:45 Pulse Rate 78 01/04/25 14:45 Respiratory Rate 18 01/04/25 14:45 Blood Pressure 139/72 01/04/25 14:45 O2 Sat by Pulse Oximetry 96 01/04/25 14:45 Pain Scale Pain Intensity 8 - Lane Coma Scale Best Eye Response (Lane): (4) open spontaneously Best Verbal Response (Lane): (5) oriented Best Motor Response (Lane): (6) obeys commands Lane Total: 15 - Physical Exam General Appearance: no apparent distress, alert Eye Exam: bilateral eye: normal inspection, PERRL, EOMI Ears, Nose, Throat Exam: normal ENT inspection, TMs normal, pharynx normal, moist mucous membranes Neck Exam: normal inspection, non-tender, supple, full range of motion, No meningismus, No limited range of motion, No midline tenderness Respiratory: normal breath sounds, lungs clear, No chest tenderness Cardiovascular: regular rate/rhythm, normal heart sounds Gastrointestinal: soft, normal bowel sounds, No tenderness Back Exam: normal inspection, normal range of motion Extremity Exam: normal inspection, normal range of motion, pelvis stable Mental Status: alert, oriented x 3, 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 Exam: normal hearing, normal speech, PERRL Coordination/Gait: normal finger to nose, normal cerebellar function Motor/Sensory: no motor deficit, no sensory deficit, no pronator drift, negative Babinski's sign DTR: bicep (R): 2+, bicep (L): 2+, knee (R): 2+, knee (L): 2+ Skin Exam: normal color SpO2 Interpretation: normal SpO2: 96 O2 Delivery: Room Air - Course EKG Interpreted by Me: RATE (75), Sinus Rhythm, NORMAL AXIS, NORMAL INTERVALS, Non-specific ST Changes Ordered Tests: Active Orders 24 hr Category Date Time Status [employer] STAT Care 01/04/25 15:25 Active EKG-ER Only STAT Care 01/04/25 15:25 Active IV Insertion STAT Care 01/04/25 15:25 Active CHEST 1 VIEW (PORTABLE) Stat Exams 01/04/25 15:25 Completed HEAD WITHOUT CONTRAST [CT] Stat Exams 01/04/25 15:25 Completed CBC W DIFF Stat Lab 01/04/25 15:40 Completed CMP Stat Lab 01/04/25 15:40 Completed Lactic Acid Stat Lab 01/04/25 15:40 Completed MAGNESIUM Stat Lab 01/04/25 15:40 Completed TROPONIN Q4H Lab 01/04/25 15:40 Completed TROPONIN Q4H Lab 01/04/25 19:30 Ordered TROPONIN Q4H Lab 01/04/25 23:30 Ordered UA W/RFX UR CULTURE Stat Lab 01/04/25 15:25 Ordered Medication Summary Discontinued Medications Generic Name Dose Route Start Last Admin Trade Name Freq PRN Reason Stop Dose Admin Sodium Chloride 1,000 mls @ 999 mls/hr 01/04/25 15:25 01/04/25 16:57 Sodium Chloride 0.9% 1000 Ml IV 01/04/25 16:25 Infused .Q1H1M STA Infusion Sodium Chloride Confirm 01/04/25 15:50 Sodium Chloride 0.9% 1000 Ml Administered 01/04/25 15:51 Dose 1,000 mls @ ud .ROUTE .STK-MED ONE Meclizine HCl 25 mg 01/04/25 15:25 01/04/25 15:52 Meclizine Hcl 25 Mg Tablet PO 01/04/25 15:26 25 mg STAT ONE Administration Meclizine HCl Confirm 01/04/25 15:50 Meclizine Hcl 25 Mg Tablet Administered 01/04/25 15:51 Dose 25 mg .ROUTE .STK-MED ONE Ondansetron HCl 4 mg 01/04/25 15:25 01/04/25 15:53 Ondansetron Hcl 4 Mg/2 Ml Vial IV 01/04/25 15:26 4 mg STAT ONE Administration Ondansetron HCl Confirm 01/04/25 15:50 Ondansetron Hcl 4 Mg/2 Ml Vial Administered 01/04/25 15:51 Dose 4 mg .ROUTE .STK-MED ONE Lab/Rad Data: Laboratory Result Diagrams 01/04/25 15:40 01/04/25 15:40 Laboratory Results 01/04/25 01/04/25 01/04/25 Range/Units 15:40 15:40 15:40 WBC (3.98-10.04) x10^3/uL RBC (3.93-5.22) x10^6/uL Hgb (11.2-15.7) g/dL Hct (34.1-44.9) % MCV (79.4-94.8) fL MCH (25.6-32.2) pg MCHC (32.2-35.5) g/dL RDW (11.7-14.4) % Plt Count (182-369) x10^3/uL MPV (9.4-12.3) fL Gran % (34.0-71.1) % Immature Gran % (Auto) (0.001-0.429) % Nucleat RBC Rel Count (0.00-0.2) % Eos # (Auto) (0.04-0.36) x10^3/uL Immature Gran # (Auto) (0.001-0.031) x10^3u/L Absolute Lymphs (auto) (1.18-3.74) x10^3/uL Absolute Monos (auto) (0.24-0.86) x10^3/uL Absolute Nucleated RBC (0.00-0.012) x10^3u/L Lymphocytes % (19.3-51.7) % Monocytes % (4.7-12.5) % Eosinophils % (0.7-5.8) % Basophils % (0.1-1.2) % Absolute Granulocytes (1.56-6.13) x10^3/uL Basophils # (0.01-0.08) x10^3/uL Sodium 142 (135-145) mmol/L Potassium 4.2 (3.5-5.1) mmol/L Chloride 106 (98-107) mmol/L Carbon Dioxide 23 (22-30) mmol/L Anion Gap 17.1 H (5-15) MEQ/L BUN 15 (7-17) mg/dL Creatinine 1.09 H (0.52-1.04) mg/dL Estimated GFR 55.7 ML/MIN Glucose 87 (74-106) mg/dL Lactic Acid 1.0 (0.4-2.0) Calcium 9.7 (8.4-10.2) mg/dL Magnesium 1.7 (1.6-2.3) mg/dL Total Bilirubin 0.60 (0.2-1.3) mg/dL AST 50 H (14-36) U/L ALT 30 (0-35) U/L Alkaline Phosphatase 48 (38-126) U/L Troponin I < 0.012 (0.000-0.033) ng/mL Serum Total Protein 7.1 (6.3-8.2) g/dL Albumin 4.5 (3.5-5.0) g/dL 01/04/25 Range/Units 15:40 WBC 6.9 (3.98-10.04) x10^3/uL RBC 4.60 (3.93-5.22) x10^6/uL Hgb 13.8 (11.2-15.7) g/dL Hct 40.6 (34.1-44.9) % MCV 88.3 (79.4-94.8) fL MCH 30.0 (25.6-32.2) pg MCHC 34.0 (32.2-35.5) g/dL RDW 13.3 (11.7-14.4) % Plt Count 245 (182-369) x10^3/uL MPV 9.9 (9.4-12.3) fL Gran % 55.5 (34.0-71.1) % Immature Gran % (Auto) 0.6 H (0.001-0.429) % Nucleat RBC Rel Count 0.0 (0.00-0.2) % Eos # (Auto) 0.47 H (0.04-0.36) x10^3/uL Immature Gran # (Auto) 0.04 H (0.001-0.031) x10^3u/L Absolute Lymphs (auto) 1.90 (1.18-3.74) x10^3/uL Absolute Monos (auto) 0.59 (0.24-0.86) x10^3/uL Absolute Nucleated RBC 0.00 (0.00-0.012) x10^3u/L Lymphocytes % 27.4 (19.3-51.7) % Monocytes % 8.5 (4.7-12.5) % Eosinophils % 6.8 H (0.7-5.8) % Basophils % 1.2 (0.1-1.2) % Absolute Granulocytes 3.85 (1.56-6.13) x10^3/uL Basophils # 0.08 (0.01-0.08) x10^3/uL Sodium (135-145) mmol/L Potassium (3.5-5.1) mmol/L Chloride (98-107) mmol/L Carbon Dioxide (22-30) mmol/L Anion Gap (5-15) MEQ/L BUN (7-17) mg/dL Creatinine (0.52-1.04) mg/dL Estimated GFR ML/MIN Glucose (74-106) mg/dL Lactic Acid (0.4-2.0) Calcium (8.4-10.2) mg/dL Magnesium (1.6-2.3) mg/dL Total Bilirubin (0.2-1.3) mg/dL AST (14-36) U/L ALT (0-35) U/L Alkaline Phosphatase (38-126) U/L Troponin I (0.000-0.033) ng/mL Serum Total Protein (6.3-8.2) g/dL Albumin (3.5-5.0) g/dL - Progress Progress: re-examined Progress Note: 01/04/25 17:30 Differential diagnosis: Head injury, CVA/TIA/central vertigo/peripheral vertigo/orthostatic dizziness, CAD UTI, sepsis 69-year-old female is evaluated in the ER for dizziness off and on for 2 weeks with some diplopia symptoms after she hit her head against this cedar chest. She has nonfocal neuroexam throughout stay in the ER. Has mild tenderness in the left parietal area. CT head is negative for any acute findings of trauma or any other acute intracranial findings. Chest x-ray is negative for any acute cardiopulmonary findings interpreted by me followed by official read. EKG is sinus rhythm with no acute ischemic changes. Patient is given meclizine and fluid, on reevaluation she still feels dizzy and reports spinning sensation. Has normal white count, chemistries fairly unremarkable with negative troponins. I believe patient needs further workup for this dizziness with possible MRI. I have shared the results of workup with patient and family and offered observation admission which they understand and agree. Discussed with Dr. Brush, reviewed history, workup and agreed with admission. Complexity of problems addressed: Moderate acuity Complexity of data reviewed/analyzed: Extensive Risk of complication: Moderate to high 01/04/25 17:33 Discussed with : Jimbo Will see patient in: hospital (observation) Counseled pt/family regarding: lab results, diagnosis, rad results Medical Desision Making - Independent Historian Additional History obtained from: Spouse - Discussion of managment Care discussed with:: hospitalist Reviewed:: Test results Agreed on:: Treatment plan, place in obs Will see patient: in hospital - Diagnostic Testing Diagnostic test were ordered, analyzed, and reviewed by me: Yes Radiological Interpretation: Interpreted by me, Reviewed by me - Risk of complications The pt has a mod risk of morbidity or mortality based on: Need for prescription drug management The pt has a high risk of morbidity or mortality based on: Decision regarding hospitilization or escalation of hosp level of care - Departure Departure Disposition: Observation Clinical Impression: Dizziness, Scalp contusion Condition: Stable Critical Care Time: No Referrals: CELINA LUNA NP [Primary Care Provider, [facility]] - Follow up/PCP as directed
--- NOTE | 2025-01-04 16:53 | XRAY ---
Indication: Dizziness. Fall. Comparison: March 01, 2023 Portable chest again demonstrates normal heart and lungs. Bony thorax intact again with osteopenia. No new/acute findings.
--- NOTE | 2025-01-04 17:11 | XRAY ---
Indication: Dizziness. Head injury. Multiple contiguous axial images obtained through the head without contrast. Comparison: March 01, 2023 Normal appearing brain parenchyma, ventricles, and bony calvarium for patient's age. Visualized paranasal sinuses and mastoid air cells are clear. Impression: Continued normal CT head without contrast exam.
[2025-01-04] MEDS ORDERED: Docusate Sodium 100 MG PO PRN (18:57)
[2025-01-04] MEDS ORDERED: NON-FORMULARY ITEM (Hydroxyzine Hcl [Hydroxyzine Hcl] 10 MG Tablet) PO PRN (19:23)
--- NOTE | 2025-01-04 19:30 | PCM.HP ---
History of Present Illness - Chief Complaint Chief Complaint: Dizziness Date: 01/04/25 History of Present Illness: is a 69 year old female with a history of hypertension, hyperlipidemia and no prior history of vertigo or stroke, who presented to the ED with co mplaints of left-sided headache with dizziness off and on for almost 2 weeks. Prior to the onset of the symptoms, the patient reports she was getting out of her bed, tripped on her heel and fell on the left side hitting her head against the edge of cedar chest with a hematoma/swelling on left temporoparietal area, and without loss of consciousness. He has been taking symptomatic treatment at home, and the swelling has improved. Despite resting, she has experienced headaches off and on, along with dizziness where patient describes spinning sensation with movements of her head and even with closing her eye and twisting movements. She also reports occasional diplopia as well. She denies numbness, tingling, or focal weakness. She reports she feels wobbly and cannot walk in a straight line with tendency to fall on 1 side or the other which is lately getting worse. No chest pain palpitations or shortness of breath reported by the patient. In the ED she received meclizine and IV fluids, but does not feel better yet. - Review of Systems Constitutional: No Symptoms Eyes: Double Vision Ears, Nose, & Throat: No Symptoms Respiratory: No Symptoms Cardiac: No Symptoms Abdominal/Gastrointestinal: No Symptoms Genitourinary Symptoms: No Symptoms Musculoskeletal: No Symptoms Skin: No Symptoms Neurological: Dizziness, Gait Changes, Headache Psychological: No Symptoms Endocrine: No Symptoms Hematologic/Lymphatic: No Symptoms Immunological/Allergic: No Symptoms All Other Systems: Reviewed and Negative Medications & Allergies Home Medications: Home Medication List Pravastatin Sodium 40 mg PO DAILY 12/13/20 [History Confirmed 01/04/25] Estradiol [Estrace] 1 mg PO DAILY 03/01/23 [History Confirmed 01/04/25] Trazodone HCl 300 mg PO HS 03/01/23 [History Confirmed 03/01/23] hydrOXYzine HCL [Hydroxyzine HCl] 10 mg PO DAILY PRN 03/01/23 [History Confirmed 01/04/25] Citalopram Hydrobromide 20 mg* [ceLEXa 20 MG] 40 mg PO DAILY 01/04/25 [History Confirmed 01/04/25] Duloxetine HCl 30 mg [Cymbalta 30 MG Capsule] 120 mg PO DAILY 01/04/25 [History Confirmed 01/04/25] Fenofibrate,Micronized 145 mg* [Tricor 145 MG] 145 mg PO DAILY 01/04/25 [History Confirmed 01/04/25] Medroxyprogesterone Acet [Equetbe11 mg] 10 mg PO DAILY 01/04/25 [History Confirmed 01/04/25] Metoprolol Succinate [Toprol Xl] 50 mg PO DAILY 01/04/25 [History Confirmed 04/23] PANTOPRAZOLE 40 mg Tablet [Protonix 40MG Tablet] 80 mg PO DAILY 01/04/25 [History Confirmed 01/04/25] Pregabalin [Lyrica 150Mg] 150 mg PO TID 01/04/25 [History Confirmed 01/04/25] Simethicone [Gas Relief] 180 mg PO TIDWMEALS 01/04/25 [History Confirmed 01/04/25] Allergies/Adverse Reactions: Allergies Allergy/AdvReac Type Severity Reaction Status Date / Time No Known Drug Allergies Allergy Verified 01/04/25 18:38 - Past Medical History Past Medical History: Yes Neurological History: No Pertinent History ENT History: No Pertinent History Cardiac History: Hypertension, Other Respiratory History: No Pertinent History Endocrine Medical History: No Pertinent History Musculoskelatal History: No Pertinent History GI Medical History: GERD History: No Pertinent History Pyscho-Social History: Anxiety Reproductive Disorders: No Pertinent History Comment: tachycardia - Past Surgical History Past Surgical History: Yes Neuro Surgical History: No Pertinent History Cardiac History: No Pertinent History Respiratory Surgery: No Pertinent History GI Surgical History: No Pertinent History Genitourinary Surgical Hx: Kidney Surgery Musculskeletal Surgical Hx: No Pertinent History Female Surgical History: No Pertinent History Other Surgical History: right kidney removed 2016 Significant Family History: no pertinent family hx - Social History Smoking Status: Former smoker Exposure to second hand smoke: Yes Alcohol: None Drug Use: none - Social Determinants of Health Will the patient participate in the screening: Declined to provide - Physical Exam Vital Signs: Vital Signs - 24 hr Temp Pulse Resp BP BP Pulse Ox 01/04/25 18:01 78 17 138/80 95 01/04/25 17:34 96 01/04/25 17:31 78 14 146/68 96 01/04/25 17:00 75 18 147/79 96 01/04/25 16:41 74 20 145/89 98 01/04/25 16:00 82 19 126/88 98 01/04/25 15:30 72 19 141/81 95 01/04/25 15:00 81 18 139/72 96 01/04/25 14:53 78 19 166/82 01/04/25 14:45 96.3 F 78 18 139/72 96 General Appearance: no apparent distress, alert Neurologic Exam: alert, oriented x 3, cooperative, 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 as tested, normal mood/affect, nml cerebellar function Eye Exam: PERRL/EOMI, eyes nml inspection Ears, Nose, Throat Exam: normal ENT inspection Neck Exam: normal inspection, non-tender, supple, full range of motion Respiratory Exam: normal breath sounds, lungs clear, airway intact Cardiovascular Exam: regular rate/rhythm, normal heart sounds Gastrointestinal/Abdomen Exam: soft, normal bowel sounds Back Exam: normal range of motion Extremity Exam: normal inspection, normal range of motion Skin Exam: normal color Results - Labs Lab/Micro Results: Lab Results-Last 24 Hours 01/04/25 01/04/25 01/04/25 Range/Units 15:40 15:40 15:40 WBC 6.9 (3.98-10.04) x10^3/uL RBC 4.60 (3.93-5.22) x10^6/uL Hgb 13.8 (11.2-15.7) g/dL Hct 40.6 (34.1-44.9) % MCV 88.3 (79.4-94.8) fL MCH 30.0 (25.6-32.2) pg MCHC 34.0 (32.2-35.5) g/dL RDW 13.3 (11.7-14.4) % Plt Count 245 (182-369) x10^3/uL MPV 9.9 (9.4-12.3) fL Gran % 55.5 (34.0-71.1) % Immature Gran % (Auto) 0.6 H (0.001-0.429) % Nucleat RBC Rel Count 0.0 (0.00-0.2) % Eos # (Auto) 0.47 H (0.04-0.36) x10^3/uL Immature Gran # (Auto) 0.04 H (0.001-0.031) x10^3u/L Absolute Lymphs (auto) 1.90 (1.18-3.74) x10^3/uL Absolute Monos (auto) 0.59 (0.24-0.86) x10^3/uL Absolute Nucleated RBC 0.00 (0.00-0.012) x10^3u/L Lymphocytes % 27.4 (19.3-51.7) % Monocytes % 8.5 (4.7-12.5) % Eosinophils % 6.8 H (0.7-5.8) % Basophils % 1.2 (0.1-1.2) % Absolute Granulocytes 3.85 (1.56-6.13) x10^3/uL Basophils # 0.08 (0.01-0.08) x10^3/uL Sodium 142 (135-145) mmol/L Potassium 4.2 (3.5-5.1) mmol/L Chloride 106 (98-107) mmol/L Carbon Dioxide 23 (22-30) mmol/L Anion Gap 17.1 H (5-15) MEQ/L BUN 15 (7-17) mg/dL Creatinine 1.09 H (0.52-1.04) mg/dL Estimated GFR 55.7 ML/MIN Glucose 87 (74-106) mg/dL Lactic Acid 1.0 (0.4-2.0) Calcium 9.7 (8.4-10.2) mg/dL Magnesium 1.7 (1.6-2.3) mg/dL Total Bilirubin 0.60 (0.2-1.3) mg/dL AST 50 H (14-36) U/L ALT 30 (0-35) U/L Alkaline Phosphatase 48 (38-126) U/L Troponin I (0.000-0.033) ng/mL Serum Total Protein 7.1 (6.3-8.2) g/dL Albumin 4.5 (3.5-5.0) g/dL 01/04/25 Range/Units 15:40 WBC (3.98-10.04) x10^3/uL RBC (3.93-5.22) x10^6/uL Hgb (11.2-15.7) g/dL Hct (34.1-44.9) % MCV (79.4-94.8) fL MCH (25.6-32.2) pg MCHC (32.2-35.5) g/dL RDW (11.7-14.4) % Plt Count (182-369) x10^3/uL MPV (9.4-12.3) fL Gran % (34.0-71.1) % Immature Gran % (Auto) (0.001-0.429) % Nucleat RBC Rel Count (0.00-0.2) % Eos # (Auto) (0.04-0.36) x10^3/uL Immature Gran # (Auto) (0.001-0.031) x10^3u/L Absolute Lymphs (auto) (1.18-3.74) x10^3/uL Absolute Monos (auto) (0.24-0.86) x10^3/uL Absolute Nucleated RBC (0.00-0.012) x10^3u/L Lymphocytes % (19.3-51.7) % Monocytes % (4.7-12.5) % Eosinophils % (0.7-5.8) % Basophils % (0.1-1.2) % Absolute Granulocytes (1.56-6.13) x10^3/uL Basophils # (0.01-0.08) x10^3/uL Sodium (135-145) mmol/L Potassium (3.5-5.1) mmol/L Chloride (98-107) mmol/L Carbon Dioxide (22-30) mmol/L Anion Gap (5-15) MEQ/L BUN (7-17) mg/dL Creatinine (0.52-1.04) mg/dL Estimated GFR ML/MIN Glucose (74-106) mg/dL Lactic Acid (0.4-2.0) Calcium (8.4-10.2) mg/dL Magnesium (1.6-2.3) mg/dL Total Bilirubin (0.2-1.3) mg/dL AST (14-36) U/L ALT (0-35) U/L Alkaline Phosphatase (38-126) U/L Troponin I < 0.012 (0.000-0.033) ng/mL Serum Total Protein (6.3-8.2) g/dL Albumin (3.5-5.0) g/dL - Radiology Impressions Radiology Exams & Impressions: Radiology Procedures Category Date Time Status CHEST 1 VIEW (PORTABLE) Stat Exams 01/04/25 15:25 Completed ECHO W/2D AND DOPPLER [US] Routine Exams 01/05/25 18:58 Ordered HEAD WITHOUT CONTRAST [CT] Stat Exams 01/04/25 15:25 Completed MRI BRAIN W & W/O CONTRAST [MRI] Routine Exams 01/05/25 08:00 Ordered - Other Procedures and Tests Respiratory Therapy 01/04/25 18:57 EKG REPEAT IN AM Assessment/Plan (1) Postconcussion syndrome Current Visit: Yes Status: Acute Assessment & Plan: Favor postconcussive syndrome; less likely occult subacute stroke. Meclizine, analgesia prn, IV fluids, telemetry, AM EKG, ECHO, AM orthostatics, AM lipid panel, MRI brain, PT eval. Continue ASA and statin. Code(s): F07.81 - POSTCONCUSSIONAL SYNDROME (2) Visual changes Current Visit: No Status: Acute Assessment & Plan: MRI brain, as above. PT eval,. Code(s): H53.9 - UNSPECIFIED VISUAL DISTURBANCE (3) Dizziness Current Visit: Yes Status: Acute Assessment & Plan: Meclizine prn. Code(s): R42 - DIZZINESS AND GIDDINESS (4) Essential hypertension Current Visit: Yes Status: Acute Assessment & Plan: Continue to monitor BP on home regimen. Code(s): I10 - ESSENTIAL (PRIMARY) HYPERTENSION (5) Elevated liver enzymes Current Visit: Yes Status: Acute Assessment & Plan: Mild elevation noted. No abdominal symptoms and exam nonfocal. Repeat CMP in AM. Code(s): R74.8 - ABNORMAL LEVELS OF OTHER SERUM ENZYMES Telemedicine Encounter - Telemedicine Encounter Telemedicine Encounter: "The entirety of this encounter was performed via Telemedicine" This visit was performed using real-time audio and video connection between my location and thepatients locationwith the assistance of a surrogateat the patients location. Written or verbal consent was obtained from the patient/guardian to perform this visit [facility] technology. Any patient questions regarding the telemedicine interaction were answered. Please note that this admission required 43 minutes to complete.
[2025-01-04 21:05] LABS: Appearance Clear (Clear); Bacteria None Seen /HPF (None Seen); Bilirubin Negative (Negative); Blood Negative (Negative); Epithelial Cells Few /HPF (None Seen); Glucose, Urine Negative (Negative); Hyaline Casts NONE SEEN /LPF (0-2); Ketones Negative (Negative); Leukocyte Esterase Negative (Negative); Nitrite Negative (Negative); Protein,Urine Dip Negative (Negative); RBC 0-2 /HPF (0-5); Urobilinogen 0.2 mg/dL (0.2); WBC 0-2 /HPF (0-5)
[2025-01-04] MEDS ORDERED: Lyrica 50MG ONE (21:11)
[2025-01-04] MEDS ORDERED: LYRICA 100MG ONE (21:11)
[2025-01-04] MEDS ORDERED: DESYREL 50 MG ONE (21:12)
[2025-01-04] MEDS: Sodium Chloride 0.9% 1000 ML 1,000 ML IV SCH (21:19)
[2025-01-04] MEDS: Zofran 4 MG/2 ML VIAL IV PRN (21:20)
[2025-01-04] MEDS: NON-FORMULARY ITEM (Trazodone Hcl [Trazodone Hcl] 100 MG Tablet) PO SCH (21:21)
[2025-01-04] MEDS: LYRICA 150MG PO SCH (21:21)
[2025-01-04] MEDS: ANTIVERT 25 MG PO PRN (21:34)
[2025-01-05 05:04] LABS: Hematocrit 39.4 % (34.1-44.9); Hemoglobin 12.8 g/dL (11.2-15.7); Mean Cell Volume 90.4 fL (79.4-94.8); Mean Corpuscular Hemoglobin 29.4 pg (25.6-32.2); Mean Corpuscular Hgb Concent. 32.5 g/dL (32.2-35.5); Mean Platelet Volume 10.2 fL (9.4-12.3); Platelet Count 230 x10^3/uL (182-369); Red Blood Count 4.36 x10^6/uL (3.93-5.22); Red Cell Distribution Width 13.6 % (11.7-14.4); White Blood Count 6.3 x10^3/uL (3.98-10.04)
[2025-01-05 05:14] VITALS: RESP 16
[2025-01-05 05:38] LABS: ANION GAP 12.5 MEQ/L (5-15); BILIRUBIN,TOTAL 0.6 mg/dL (0.2-1.3); Calcium 9.1 mg/dL (8.4-10.2); Creatinine 1 1.38 mg/dL (0.52-1.04); Potassium 3.9 mmol/L (3.5-5.1); Total Protein 6.6 g/dL (6.3-8.2)
[2025-01-05] MEDS ORDERED: ATARAX 25 MG PO PRN (07:14)
[2025-01-05] MEDS: Mylicon 80MG PO SCH (07:19)
[2025-01-05] MEDS ORDERED: SIMETHICONE 180 MG PO SCH (08:00)
[2025-01-05] MEDS: Protonix 40MG Tablet PO SCH (08:54)
[2025-01-05] MEDS: ZOCOR 20MG PO SCH (08:54)
[2025-01-05] MEDS: ceLEXa 20 MG PO SCH (08:55)
[2025-01-05] MEDS: Cymbalta 30 MG Capsule PO SCH (08:55)
[2025-01-05] MEDS: Tricor 145 MG PO SCH (08:55)
[2025-01-05] MEDS: Toprol Xl 50 MG PO SCH (08:55)
[2025-01-05] MEDS: PROVERA10 MG PO SCH (08:56)
[2025-01-05] MEDS: ENOXAPARIN SODIUM SQ SCH (08:59)
[2025-01-05] MEDS: ESTRACE 1 MG PO SCH (09:04)
--- NOTE | 2025-01-05 09:41 | XRAY ---
Indication: Contusion. Status post fall [address] exam. Sagittal, coronal, and axial MRI brain performed without contrast using T1, T2, FLAIR, diffusion, and ADC sequences. Comparison: None Age-appropriate global atrophy. No acute intracranial hemorrhage, abnormal extra-axial fluid collection, or mass effect. Diffusion images negative for restricted signal. Fourth ventricle is midline without hydrocephalus. 7/8 cranial nerve complex bilaterally symmetric. Normal flow void signal within the major intracerebral circulation. Normal appearing craniocervical junction and sella turcica. Paranasal sinuses are clear. Impression: Atrophy within normal limits. Remaining MRI brain without contrast exam negative.
[2025-01-05] MEDS ORDERED: Toprol-Xl 25MG Tablets PO SCH (10:00)
[2025-01-05] MEDS ORDERED: NON-FORMULARY ITEM (Pravastatin Sodium [Pravastatin Sodium] 20 MG Tablet) PO SCH (10:00)
[2025-01-05] MEDS ORDERED: NON-FORMULARY ITEM (Estradiol [Estrace] 0.5 MG Tablet) PO SCH (10:00)
[2025-01-05 12:03] VITALS: BP 137/62; PULSE 81; TEMP 98; O2SAT 96
[2025-01-05] MEDS: TYLENOL 325 MG PO PRN (12:13)
--- NOTE | 2025-01-05 13:45 | PCM.DS ---
Discharge Summary Date of Admission: 01/04/25 18:35 Date of Discharge: 01/05/25 Admitting Physician: KELLY SCHNEIDER MD Primary Care Provider: CELINA LUNA Allergies Allergies No Known Drug Allergies Allergy (Verified 01/04/25 18:38) Hospital Summary - Hospital Course Hospital Course: The patient is a 69-year-old female with a history of hypertension and hyperlipidemia, and no prior history of vertigo or stroke, who presented to the emergency department with complaints of a left-sided headache and intermittent dizziness for nearly two weeks. She reports that the symptoms began after she tripped while getting out of bed and fell, striking the left side of her head on the edge of a cedar chest. She developed a hematoma and swelling in the left temporoparietal region but did not lose consciousness. She has been managing symptoms at home with rest and supportive care, and the swelling has since improved. Despite this, she continues to experience episodic headaches and a spinning sensation triggered by head movementeven with eyes closed and twisting motions. She also reports occasional episodes of diplopia. She denies any numbness, tingling, or focal weakness but describes feeling unsteady, with a worsening inability to walk in a straight line and a tendency to veer to one side. She denies chest pain, palpitations, or shortness of breath. In the ED, she was given meclizine and IV fluids but reports no significant improvement in her dizziness. Today, she continues to experience dizziness. Physical therapy was able to work with her, and outpatient vestibular therapy is recommended. An MRI of the brain was negative, and echocardiogram results are pending; she will follow up with her primary care provider for those results. IV fluids were restarted this morning for dehydration, and she is encouraged to maintain oral intake. The patient is requesting discharge home today. She currently denies chest pain, shortness of breath, abdominal pain, nausea, vomiting, or diarrhea. - Vitals & Intake/Output Vital Signs: Vital Signs Temperature 98.0 F 01/05/25 12:00 Pulse Rate 81 01/05/25 12:00 Respiratory Rate 16 01/05/25 12:00 Blood Pressure 137/62 01/05/25 12:00 O2 Sat by Pulse Oximetry 96 01/05/25 12:00 Intake & Output: Intake & Output 01/03/25 01/04/25 01/05/25 05/25 11:59 11:59 11:59 11:59 Intake Total 1207 Output Total 600 Balance 607 Weight 75.3 kg - Lab Result Diagrams: 01/05/25 04:59 01/05/25 04:59 Lab Results-Last 24 Hrs: Lab Results-Last 24 Hours 01/04/25 01/04/25 01/04/25 Range/Units 15:40 15:40 15:40 WBC 6.9 (3.98-10.04) x10^3/uL RBC 4.60 (3.93-5.22) x10^6/uL Hgb 13.8 (11.2-15.7) g/dL Hct 40.6 (34.1-44.9) % MCV 88.3 (79.4-94.8) fL MCH 30.0 (25.6-32.2) pg MCHC 34.0 (32.2-35.5) g/dL RDW 13.3 (11.7-14.4) % Plt Count 245 (182-369) x10^3/uL MPV 9.9 (9.4-12.3) fL Gran % 55.5 (34.0-71.1) % Immature Gran % (Auto) 0.6 H (0.001-0.429) % Nucleat RBC Rel Count 0.0 (0.00-0.2) % Eos # (Auto) 0.47 H (0.04-0.36) x10^3/uL Immature Gran # (Auto) 0.04 H (0.001-0.031) x10^3u/L Absolute Lymphs (auto) 1.90 (1.18-3.74) x10^3/uL Absolute Monos (auto) 0.59 (0.24-0.86) x10^3/uL Absolute Nucleated RBC 0.00 (0.00-0.012) x10^3u/L Lymphocytes % 27.4 (19.3-51.7) % Monocytes % 8.5 (4.7-12.5) % Eosinophils % 6.8 H (0.7-5.8) % Basophils % 1.2 (0.1-1.2) % Absolute Granulocytes 3.85 (1.56-6.13) x10^3/uL Basophils # 0.08 (0.01-0.08) x10^3/uL Sodium 142 (135-145) mmol/L Potassium 4.2 (3.5-5.1) mmol/L Chloride 106 (98-107) mmol/L Carbon Dioxide 23 (22-30) mmol/L Anion Gap 17.1 H (5-15) MEQ/L BUN 15 (7-17) mg/dL Creatinine 1.09 H (0.52-1.04) mg/dL Estimated GFR 55.7 ML/MIN Glucose 87 (74-106) mg/dL Lactic Acid 1.0 (0.4-2.0) Calcium 9.7 (8.4-10.2) mg/dL Magnesium 1.7 (1.6-2.3) mg/dL Total Bilirubin 0.60 (0.2-1.3) mg/dL AST 50 H (14-36) U/L ALT 30 (0-35) U/L Alkaline Phosphatase 48 (38-126) U/L Troponin I (0.000-0.033) ng/mL Serum Total Protein 7.1 (6.3-8.2) g/dL Albumin 4.5 (3.5-5.0) g/dL TSH 3rd Generation (0.470-4.680) mIU/L Urine Color (Yellow) Urine Appearance (Clear) Urine pH (4.6-8.0) Ur Specific [place] (1.005-1.030) Urine Protein (Negative) Urine Glucose (UA) (Negative) mg/dL Urine Ketones (Negative) Urine Blood (Negative) Urine Nitrite (Negative) Urine Bilirubin (Negative) Urine Urobilinogen (0.2) mg/dL Ur Leukocyte Esterase (Negative) U Hyaline Cast (Auto) (0-2) /LPF Urine Microscopic RBC (0-5) /HPF Urine Microscopic WBC (0-5) /HPF Ur Epithelial Cells (None Seen) /HPF Urine Bacteria (None Seen) /HPF Urine Culture Reflexed (NO) 01/04/25 01/04/25 01/04/25 Range/Units 15:40 19:25 20:45 WBC (3.98-10.04) x10^3/uL RBC (3.93-5.22) x10^6/uL Hgb (11.2-15.7) g/dL Hct (34.1-44.9) % MCV (79.4-94.8) fL MCH (25.6-32.2) pg MCHC (32.2-35.5) g/dL RDW (11.7-14.4) % Plt Count (182-369) x10^3/uL MPV (9.4-12.3) fL Gran % (34.0-71.1) % Immature Gran % (Auto) (0.001-0.429) % Nucleat RBC Rel Count (0.00-0.2) % Eos # (Auto) (0.04-0.36) x10^3/uL Immature Gran # (Auto) (0.001-0.031) x10^3u/L Absolute Lymphs (auto) (1.18-3.74) x10^3/uL Absolute Monos (auto) (0.24-0.86) x10^3/uL Absolute Nucleated RBC (0.00-0.012) x10^3u/L Lymphocytes % (19.3-51.7) % Monocytes % (4.7-12.5) % Eosinophils % (0.7-5.8) % Basophils % (0.1-1.2) % Absolute Granulocytes (1.56-6.13) x10^3/uL Basophils # (0.01-0.08) x10^3/uL Sodium (135-145) mmol/L Potassium (3.5-5.1) mmol/L Chloride (98-107) mmol/L Carbon Dioxide (22-30) mmol/L Anion Gap (5-15) MEQ/L BUN (7-17) mg/dL Creatinine (0.52-1.04) mg/dL Estimated GFR ML/MIN Glucose (74-106) mg/dL Lactic Acid (0.4-2.0) Calcium (8.4-10.2) mg/dL Magnesium (1.6-2.3) mg/dL Total Bilirubin (0.2-1.3) mg/dL AST (14-36) U/L ALT (0-35) U/L Alkaline Phosphatase (38-126) U/L Troponin I < 0.012 < 0.012 (0.000-0.033) ng/mL Serum Total Protein (6.3-8.2) g/dL Albumin (3.5-5.0) g/dL TSH 3rd Generation (0.470-4.680) mIU/L Urine Color Yellow (Yellow) Urine Appearance Clear (Clear) Urine pH 6.0 (4.6-8.0) Ur Specific [place] 1.010 (1.005-1.030) Urine Protein Negative (Negative) Urine Glucose (UA) Negative (Negative) mg/dL Urine Ketones Negative (Negative) Urine Blood Negative (Negative) Urine Nitrite Negative (Negative) Urine Bilirubin Negative (Negative) Urine Urobilinogen 0.2 (0.2) mg/dL Ur Leukocyte Esterase Negative (Negative) U Hyaline Cast (Auto) NONE SEEN (0-2) /LPF Urine Microscopic RBC 0-2 (0-5) /HPF Urine Microscopic WBC 0-2 (0-5) /HPF Ur Epithelial Cells Few (None Seen) /HPF Urine Bacteria None Seen (None Seen) /HPF Urine Culture Reflexed NO (NO) 01/04/25 01/05/25 01/05/25 Range/Units 22:50 04:59 04:59 WBC 6.3 (3.98-10.04) x10^3/uL RBC 4.36 (3.93-5.22) x10^6/uL Hgb 12.8 (11.2-15.7) g/dL Hct 39.4 (34.1-44.9) % MCV 90.4 (79.4-94.8) fL MCH 29.4 (25.6-32.2) pg MCHC 32.5 (32.2-35.5) g/dL RDW 13.6 (11.7-14.4) % Plt Count 230 (182-369) x10^3/uL MPV 10.2 (9.4-12.3) fL Gran % (34.0-71.1) % Immature Gran % (Auto) (0.001-0.429) % Nucleat RBC Rel Count (0.00-0.2) % Eos # (Auto) (0.04-0.36) x10^3/uL Immature Gran # (Auto) (0.001-0.031) x10^3u/L Absolute Lymphs (auto) (1.18-3.74) x10^3/uL Absolute Monos (auto) (0.24-0.86) x10^3/uL Absolute Nucleated RBC (0.00-0.012) x10^3u/L Lymphocytes % (19.3-51.7) % Monocytes % (4.7-12.5) % Eosinophils % (0.7-5.8) % Basophils % (0.1-1.2) % Absolute Granulocytes (1.56-6.13) x10^3/uL Basophils # (0.01-0.08) x10^3/uL Sodium 142 (135-145) mmol/L Potassium 3.9 (3.5-5.1) mmol/L Chloride 109 H (98-107) mmol/L Carbon Dioxide 24 (22-30) mmol/L Anion Gap 12.5 (5-15) MEQ/L BUN 14 (7-17) mg/dL Creatinine 1.38 H (0.52-1.04) mg/dL Estimated GFR 42.0 ML/MIN Glucose 94 (74-106) mg/dL Lactic Acid (0.4-2.0) Calcium 9.1 (8.4-10.2) mg/dL Magnesium (1.6-2.3) mg/dL Total Bilirubin 0.60 (0.2-1.3) mg/dL AST 38 H (14-36) U/L ALT 25 (0-35) U/L Alkaline Phosphatase 46 (38-126) U/L Troponin I < 0.012 (0.000-0.033) ng/mL Serum Total Protein 6.6 (6.3-8.2) g/dL Albumin 4.0 (3.5-5.0) g/dL TSH 3rd Generation (0.470-4.680) mIU/L Urine Color (Yellow) Urine Appearance (Clear) Urine pH (4.6-8.0) Ur Specific [place] (1.005-1.030) Urine Protein (Negative) Urine Glucose (UA) (Negative) mg/dL Urine Ketones (Negative) Urine Blood (Negative) Urine Nitrite (Negative) Urine Bilirubin (Negative) Urine Urobilinogen (0.2) mg/dL Ur Leukocyte Esterase (Negative) U Hyaline Cast (Auto) (0-2) /LPF Urine Microscopic RBC (0-5) /HPF Urine Microscopic WBC (0-5) /HPF Ur Epithelial Cells (None Seen) /HPF Urine Bacteria (None Seen) /HPF Urine Culture Reflexed (NO) 01/05/25 Range/Units 04:59 WBC (3.98-10.04) x10^3/uL RBC (3.93-5.22) x10^6/uL Hgb (11.2-15.7) g/dL Hct (34.1-44.9) % MCV (79.4-94.8) fL MCH (25.6-32.2) pg MCHC (32.2-35.5) g/dL RDW (11.7-14.4) % Plt Count (182-369) x10^3/uL MPV (9.4-12.3) fL Gran % (34.0-71.1) % Immature Gran % (Auto) (0.001-0.429) % Nucleat RBC Rel Count (0.00-0.2) % Eos # (Auto) (0.04-0.36) x10^3/uL Immature Gran # (Auto) (0.001-0.031) x10^3u/L Absolute Lymphs (auto) (1.18-3.74) x10^3/uL Absolute Monos (auto) (0.24-0.86) x10^3/uL Absolute Nucleated RBC (0.00-0.012) x10^3u/L Lymphocytes % (19.3-51.7) % Monocytes % (4.7-12.5) % Eosinophils % (0.7-5.8) % Basophils % (0.1-1.2) % Absolute Granulocytes (1.56-6.13) x10^3/uL Basophils # (0.01-0.08) x10^3/uL Sodium (135-145) mmol/L Potassium (3.5-5.1) mmol/L Chloride (98-107) mmol/L Carbon Dioxide (22-30) mmol/L Anion Gap (5-15) MEQ/L BUN (7-17) mg/dL Creatinine (0.52-1.04) mg/dL Estimated GFR ML/MIN Glucose (74-106) mg/dL Lactic Acid (0.4-2.0) Calcium (8.4-10.2) mg/dL Magnesium (1.6-2.3) mg/dL Total Bilirubin (0.2-1.3) mg/dL AST (14-36) U/L ALT (0-35) U/L Alkaline Phosphatase (38-126) U/L Troponin I (0.000-0.033) ng/mL Serum Total Protein (6.3-8.2) g/dL Albumin (3.5-5.0) g/dL TSH 3rd Generation 0.366 L (0.470-4.680) mIU/L Urine Color (Yellow) Urine Appearance (Clear) Urine pH (4.6-8.0) Ur Specific [place] (1.005-1.030) Urine Protein (Negative) Urine Glucose (UA) (Negative) mg/dL Urine Ketones (Negative) Urine Blood (Negative) Urine Nitrite (Negative) Urine Bilirubin (Negative) Urine Urobilinogen (0.2) mg/dL Ur Leukocyte Esterase (Negative) U Hyaline Cast (Auto) (0-2) /LPF Urine Microscopic RBC (0-5) /HPF Urine Microscopic WBC (0-5) /HPF Ur Epithelial Cells (None Seen) /HPF Urine Bacteria (None Seen) /HPF Urine Culture Reflexed (NO) - Radiology Exams Ordered Rad Exams-Entire Visit: Radiology Procedures Category Date Time Status CHEST 1 VIEW (PORTABLE) Stat Exams 01/04/25 15:25 Completed ECHO W/2D AND DOPPLER [US] Routine Exams 01/05/25 18:58 Taken HEAD WITHOUT CONTRAST [CT] Stat Exams 01/04/25 15:25 Completed MRI BRAIN W/O CONTRAST [MRI] Routine Exams 01/05/25 08:00 Completed - Procedures and Test Procedures and Tests throughout Hospitalization: Therapy Orders & Screens 01/04/25 18:57 PT Eval & Treat ( Order) ONCE Reason for Eval:: dizziness, safety assessment Diagnosis: Dizziness EKG REPEAT IN AM Comment: Diagnosis: Dizziness 01/05/25 10:00 OT Screen per Nursing Assess ONCE Comment: Protocol Order Physician Instructions: Greater than 3 points order OT Admission Screening Reason For Exam: Triggered on Admission Diagnosis: Dizziness Open Wound/Cellutlitis/Pressure Ulcers: No Acute Fx/ORIF/Change in wt bearing status: No Severe MUSCULOSKELETAL pain: No ADL Dysfunction: Yes Acute CVA w/Hemiparesis/Hemiplegia: No Decreased Functional Mobility/Strength: Yes Sprain/Strain: No Acute Post-op Mobility Dysfunction: No Total Points: 4 Discharge Exam General Appearance: no apparent distress, alert Neurologic Exam: alert, oriented x 3, cooperative, normal mood/affect, nml cerebellar function, sensation nml, abnormal gait, other (dizziness), No motor deficits Eye Exam: PERRL, EOMI, eyes nml inspection Ears, Nose, Throat Exam: normal ENT inspection, pharynx normal, moist mucous membranes Neck Exam: normal inspection, non-tender, supple, full range of motion Respiratory Exam: normal breath sounds, lungs clear, No respiratory distress Cardiovascular Exam: regular rate/rhythm, normal heart sounds Gastrointestinal/Abdomen Exam: soft, No tenderness, No mass Pelvic Exam: deferred Rectal Exam: deferred Back Exam: normal inspection, normal range of motion, No CVA tenderness, No vertebral tenderness Extremity Exam: normal inspection, normal range of motion Skin Exam: normal color, warm, dry Final Diagnosis/Problem List - Final Discharge Diagnosis/Problem (1) Postconcussion syndrome Current Visit: Yes Status: Acute Code(s): F07.81 - POSTCONCUSSIONAL SYNDROME (2) Visual changes Current Visit: No Status: Acute Code(s): H53.9 - UNSPECIFIED VISUAL DISTURBANCE (3) Dizziness Current Visit: Yes Status: Acute Code(s): R42 - DIZZINESS AND GIDDINESS (4) Essential hypertension Current Visit: Yes Status: Acute Code(s): I10 - ESSENTIAL (PRIMARY) HYPERTENSION (5) Elevated liver enzymes Current Visit: Yes Status: Acute Assessment & Plan: (1) Postconcussion syndrome Current Visit: Yes Status: Acute Assessment & Plan: Favor postconcussive syndrome; less likely occult subacute stroke. Meclizine, analgesia prn, IV fluids, telemetry, AM EKG, ECHO, AM orthostatics, AM lipid panel, MRI brain, PT eval. Continue ASA and statin. - MRI negative for acute concern - CBC, CMP reviewed - F/U OP with PT Code(s): F07.81 - POSTCONCUSSIONAL SYNDROME (2) Visual changes Current Visit: No Status: Acute Assessment & Plan: -MRI brain, as above. PT eval,. Code(s): H53.9 - UNSPECIFIED VISUAL DISTURBANCE (3) Dizziness Current Visit: Yes Status: Acute Assessment & Plan: - Meclizine prn. - Echo results pending- f/u with PCP OP for results Code(s): R42 - DIZZINESS AND GIDDINESS (4) Essential hypertension Current Visit: Yes Status: Acute Assessment & Plan: -Continue to monitor BP on home regimen. Code(s): I10 - ESSENTIAL (PRIMARY) HYPERTENSION (5) Elevated liver enzymes Current Visit: Yes Status: Acute Assessment & Plan: -Mild elevation noted. No abdominal symptoms and exam nonfocal. Repeat CMP in AM. 01/05 - AST 38- improved- f/u OP with PCP for repeat labs Code(s): R74.8 - ABNORMAL LEVELS OF OTHER SERUM ENZYMES Code(s): R74.8 - ABNORMAL LEVELS OF OTHER SERUM ENZYMES (6) Dehydration Current Visit: Yes Status: Acute Assessment & Plan: 01/05 - Creat 1.38- IVF - Encouraged oral intake OP for hydration Code(s): E86.0 - DEHYDRATION (7) Hyperthyroidism Current Visit: Yes Status: Acute Assessment & Plan: - TSH 0.366 - Will need 2nd lab redrawn OP and if elevated referral to endocrinology Code(s): E05.90 - THYROTOXICOSIS, UNSP WITHOUT THYROTOXIC CRISIS OR STORM - Discharge Discharge Date: 01/05/25 Disposition: Home, Self-Care Condition: Stable Prescriptions: New Meclizine HCl 25 mg [Antivert 25 mg] 25 mg PO Q6H PRN PRN 10 Days #40 tablet PRN Reason: Dizziness Continue Pravastatin Sodium 40 mg PO DAILY Trazodone HCl 300 mg PO HS Estradiol [Estrace] 1 mg PO DAILY hydrOXYzine HCL [Hydroxyzine HCl] 10 mg PO DAILY PRN PRN Reason: Anxiety Medroxyprogesterone Acet [[id number] mg] 10 mg PO DAILY Citalopram Hydrobromide 20 mg* [ceLEXa 20 MG] 40 mg PO DAILY Duloxetine HCl 30 mg [Cymbalta 30 MG Capsule] 120 mg PO DAILY Metoprolol Succinate [Toprol Xl] 50 mg PO DAILY PANTOPRAZOLE 40 mg Tablet [Protonix 40MG Tablet] 80 mg PO DAILY Fenofibrate,Micronized 145 mg* [Tricor 145 MG] 145 mg PO DAILY Pregabalin [Lyrica 150Mg] 150 mg PO TID Simethicone [Gas Relief] 180 mg PO TIDWMEALS Outpatient Orders: Physical Therapy Eval & Treat Facility: [facility], Location: PHYSICAL THERAPY Additional Instructions: YOU APPT WITH [facility] IS 01/10/25@1300 [facility]ER WAS ORDERED THRU [facility]- THEY WILL DELIVER IT TO YOUR HOME. YOU CAN CALL AND FOLLOW UP WITH THEM AT [phone] IF NEEDED Follow up with: CELINA LUNA NP [Primary Care Provider, [facility]] - 01/11/25 11:00 am
[2025-01-05] MEDS ORDERED: DESYREL 50 MG PO SCH (22:00)
== END 2025-01-05 15:09 | disposition home or self-care (01) ==
LOC: ED 14:33 → MED SURG 18:35
PROVIDERS: ADMIT Internal Medicine; ATTEND Internal Medicine
DX: F07.81 Postconcussional syndrome (principal); H53.9 Unspecified visual disturbance; R42 Dizziness and giddiness; I10 Essential (primary) hypertension; E78.5 Hyperlipidemia, unspecified; R74.8 Abnormal levels of other serum enzymes; E86.0 Dehydration; E05.90 Thyrotoxicosis, unspecified without thyrotoxic crisis or storm; W19.XXXA Unspecified fall, initial encounter; Z79.899 Other long term (current) drug therapy
CPT/HCPCS: 36415; 70450; 70551; 71045; 80053; 81001; 83605; 83735; 84443; 84484; 85025; 85027; 93005; 93041; 93268; 93306; 95992; 96374; 97110; 97163; 97530; 99285; G0378; Q3014; 99284; J1650; J2405; A9270-GY